=== PATIENT | male | born 1940 | race Caucasian/White ===

== ENCOUNTER 2018-11-20 11:15 | Emergency (ER) | payer OTHER, SELFPAY ==
[2018-11-20 11:25] VITALS: BP 138/57; PULSE 60; RESP 16; TEMP 36.8; O2SAT 95
--- NOTE | 2018-11-20 11:46 | W.ED.GENAD ---
Discharge Plan Disposition Patient Disposition: HOME Condition: Improving Discharge Details Chief Complaint: EyeProblem Clinical Impression: Acute conjunctivitis of right eye ED Provider: Tony Mauro Home Meds and New Rx's Prescriptions: New tobramycin 0.3 % drops 1 drp OP Q4H Qty: 5 RF: 0 Continued atenolol 100 mg Tablet 100 mg PO DAILY RF: 0 dorzolamide-timolol 22.3-6.8 mg/mL Drops 1 drp OPHTHALMIC (EYE) BID RF: 0 allopurinol 300 mg Tablet 300 mg PO DAILY RF: 0 carbidopa-levodopa 25-100 mg Tablet 1 tab PO TID RF: 0 finasteride 5 mg Tablet 5 mg PO DAILY RF: 0 cholecalciferol (vitamin D3) [Vitamin D3] 1,000 unit Capsule 1,000 unit PO DAILY RF: 0 Durezol 0.05 % Drops 1 drp OPHTHALMIC (EYE) BID RF: 0 Discharge Instructions Instructions: Conjunctivitis (ED) Additional Instructions: I discussed your case with Dr Doll at his office in [place]. Please begin tobramycin ophthalmic drops, apply to affected eye(s) 4 times daily. Apply 10 minutes after other eyedrop medications. We will arrange an outpatient follow-up for you with [facility]: The office is available at [phone]. Medical Decision Making 78yom [place] with 1-2 days of R conjunctival injection with purulent crusting discharge this morning. He is s/p retinal repair and has been taking difluprednate and Dorzolamide. Appears consistent with acute right conjunctivitis. Visual acuity preserved at 20/100. Globes soft/ballotable. Discussed with Dr Doll, the patient's electronic technologist in [place]. He recommends continuing his difluprednate on dorzolamide, adding tobramycin 4 times daily, and asked that the patient be seen in local follow-up. Followup with [facility] made. HPI General Mode of arrival: ambulatory. Date/Time Provider Initiated Documentation: 11/20/18 11:18. Limitations to Documentation: no limitations. Information obtained by: patient. History of Present Illness 78 year old M presents to the emergency department with the chief complaint of R eye conjunctivitis, described as moderate, Quality is described as burning and constant, and is localized to the eyes and right. Patient reports no radiation. Patient started experiencing this hour(s) and it has been constant. No relieving factors improve symptom(s), No exacerbating factors reported . Patient notes no other symptoms.. Patient did receive the following treatments prior to arrival, other (Dorzolamide, difluprednate) Related Data Home Medications Medication Instructions Recorded Confirmed Durezol 1 drp OPHTHALMIC (EYE) BID 11/20/18 11/20/18 allopurinol 300 mg PO DAILY 11/20/18 11/20/18 atenolol 100 mg PO DAILY 11/20/18 11/20/18 carbidopa-levodopa 1 tab PO TID 11/20/18 11/20/18 cholecalciferol (vitamin D3) 1,000 unit PO DAILY 11/20/18 11/20/18 [Vitamin D3] dorzolamide-timolol 1 drp OPHTHALMIC (EYE) BID 11/20/18 11/20/18 finasteride 5 mg PO DAILY 11/20/18 11/20/18 tobramycin 1 drp OP Q4H #5 ml 11/20/18 Previous Rx's Medication Instructions Recorded tobramycin 1 drp OP Q4H #5 ml 11/20/18 Allergies Allergy/AdvReac Type Severity Reaction Status Date / Time codeine Allergy Unverified 11/20/18 11:29 General Stated Complaint: EyeProblem BRENT: 4 Review of Systems Review of Systems no pain, no change to vision noticed, denies other illness. [facility] Social History Smoking/Tobacco Use Status: Former Tobacco Use Drug use: Never Do you feel safe at home: Yes Exam Narrative Exam Narrative: GEN: awake, alert, oriented 3. Pleasant, well groomed, interactive. HEAD: Normocephalic, atraumatic ENT: Mucous membranes moist, oropharynx unremarkable, External ear exam unremarkable EYES: PERRL, EOMI. Periorbital edema R. Bilateral injection, R crusting of eyelid. VA 20/100 OS/OU/OD NECK: Full ROM, no DEEPAK, no menigismus Neuro: Grossly normal neurologic exam, conversant, interactive. Psych: Speech fluent, thoughts congruent, affect normal Course Vital Signs Temperature 36.8 C 11/20/18 11:25 Pulse 60 11/20/18 11:25 Respiratory Rate 16 11/20/18 11:25 Blood Pressure 138/57 L 11/20/18 11:25 Pulse Oximetry 95 11/20/18 11:25 Temperature 36.8 C 11/20/18 11:25 Temperature Source Skin 11/20/18 11:25 Pulse 60 11/20/18 11:25 Respiratory Rate 16 11/20/18 11:25 Respiratory Effort Non-Labored 11/20/18 11:29 Blood Pressure 138/57 L 11/20/18 11:25 Blood Pressure Position Sitting 11/20/18 11:25 Pulse Oximetry 95 11/20/18 11:25 Oxygen Delivery Method Room Air 11/20/18 11:25 Oxygen Flow Rate 0 11/20/18 11:25 Pain Level 2 11/20/18 11:25
--- NOTE | 2018-11-20 11:56 | ED.GENADUL_ITS ---
Discharge Plan Disposition Patient Disposition: HOME Condition: Improving Discharge Details Chief Complaint: EyeProblem Clinical Impression: Acute conjunctivitis of right eye ED Provider: Tony Mauro Home Meds and New Rx's Prescriptions: New tobramycin 0.3 % drops 1 drp OP Q4H Qty: 5 RF: 0 Continued atenolol 100 mg Tablet 100 mg PO DAILY RF: 0 dorzolamide-timolol 22.3-6.8 mg/mL Drops 1 drp OPHTHALMIC (EYE) BID RF: 0 allopurinol 300 mg Tablet 300 mg PO DAILY RF: 0 carbidopa-levodopa 25-100 mg Tablet 1 tab PO TID RF: 0 finasteride 5 mg Tablet 5 mg PO DAILY RF: 0 cholecalciferol (vitamin D3) [Vitamin D3] 1,000 unit Capsule 1,000 unit PO DAILY RF: 0 Durezol 0.05 % Drops 1 drp OPHTHALMIC (EYE) BID RF: 0 Discharge Instructions Instructions: Conjunctivitis (ED) Additional Instructions: I discussed your case with Dr Doll at his office in [place]. Please begin tobramycin ophthalmic drops, apply to affected eye(s) 4 times daily. Apply 10 minutes after other eyedrop medications. We will arrange an outpatient follow-up for you with [facility]: The office is available at [phone]. Medical Decision Making 78yom presents from his home in [facility] with 1-2 days of R conjunctival injection with purulent crusting discharge this morning. He is s/p retinal repair and has been taking difluprednate and Dorzolamide. Appears consistent with acute right conjunctivitis. Visual acuity preserved at 20/100. Globes soft/ballotable. Discussed with Dr Doll, the patient's wood die maker in [place]. He recommends continuing his difluprednate on dorzolamide, adding tobramycin 4 times daily, and asked that the patient be seen in local follow-up. Followup with [facility] made. HPI General Mode of arrival: ambulatory . Date/Time Provider Initiated Documentation: 11/20/18 11:18 . Limitations to Documentation: no limitations . Information obtained by: patient . History of Present Illness 78 year old M presents to the emergency department with the chief complaint of R eye conjuncti vitis, described as moderate, Quality is described as burning and constant, and is localized to the eyes and right. Patient reports no radiation. Patient started experiencing this hour(s) and it has been constant. No relieving factors improve symptom(s), No exacerbating factors reported . Patient notes no other symptoms.. Patient did receive the following treatments prior to arrival, other (Dorzolamide, difluprednate) Related Data Home Medications Medication Instructions Recorded Confirmed Durezol 1 drp OPHTHALMIC (EYE) BID 11/20/18 11/20/18 allopurinol 300 mg PO DAILY 11/20/18 11/20/18 atenolol 100 mg PO DAILY 11/20/18 11/20/18 carbidopa-levodopa 1 tab PO TID 11/20/18 11/20/18 cholecalciferol (vitamin D3) 1,000 unit PO DAILY 11/20/18 11/20/18 [Vitamin D3] dorzolamide-timolol 1 drp OPHTHALMIC (EYE) BID 11/20/18 11/20/18 finasteride 5 mg PO DAILY 11/20/18 11/20/18 tobramycin 1 drp OP Q4H #5 ml 11/20/18 Previous Rx's Medication Instructions Recorded tobramycin 1 drp OP Q4H #5 ml 11/20/18 Allergies Allergy/AdvReac Type Severity Reaction Status Date / Time codeine Allergy Unverified 11/20/18 11:29 General Stated Complaint: EyeProblem BRENT: 4 Review of Systems Review of Systems no pain, no change to vision noticed, denies other illness. [facility] Social History Smoking/Tobacco Use Status: Former Tobacco Use Drug use: Never Do you feel safe at home: Yes Exam Narrative Exam Narrative: GEN: awake, alert, oriented 3. Pleasant, well groomed, interactive. HEAD: Normocephalic, atraumatic ENT: Mucous membranes moist, oropharynx unremarkable, External ear exam unremarkable EYES: PERRL, EOMI. Periorbital edema R. Bilateral injection, R crusting of eyelid. VA 20/100 OS/OU/OD NECK: Full ROM, no DEEPAK, no menigismus Neuro: Grossly normal neurologic exam, conversant, interactive. Psych: Speech fluent, thoughts congruent, affect normal Course Vital Signs Temperature 36.8 C 11/20/18 11:25 Pulse 60 07/03/19 11:25 Respiratory Rate 16 11/20/18 11:25 Blood Pressure 138/57 L 11/20/18 11:25 Pulse Oximetry 95 11/20/18 11:25 Temperature 36.8 C 11/20/18 11:25 Temperature Source Skin 11/20/18 11:25 Pulse 60 11/20/18 11:25 Respiratory Rate 16 11/20/18 11:25 Respiratory Effort Non-Labored 11/20/18 11:29 Blood Pressure 138/57 L 11/20/18 11:25 Blood Pressure Position Sitting 11/20/18 11:25 Pulse Oximetry 95 11/20/18 11:25 Oxygen Delivery Method Room Air 11/20/18 11:25 Oxygen Flow Rate 0 11/20/18 11:25 Pain Level 2 11/20/18 11:25
--- NOTE | 2018-11-20 12:03 | NUR.NOTE ---
Nursing Note: Appt. made for pt today @ [id number]; to work him in with [facility]. Genoveva Castellanos.
== END 2018-11-20 12:09 | disposition home or self-care (01) ==
PROVIDERS: Emergency Provider Emergency Medicine
DX: H10.31 Unspecified acute conjunctivitis, right eye (principal)
CPT/HCPCS: 99283

== ENCOUNTER 2018-11-24 11:14 | Emergency (ER) | payer OTHER, SELFPAY ==
[2018-11-24 11:25] VITALS: BP 135/106; PULSE 56; RESP 16; TEMP 36.4; O2SAT 97
--- NOTE | 2018-11-24 11:44 | W.ED.GENAD ---
Discharge Plan Disposition Patient Disposition: HOME Condition: Stable Discharge Details Chief Complaint: RespSymp Clinical Impression: Cough, Pneumonia Primary Care Provider: Valentina,Local ED Provider: Yolis Chaudhary Home Meds and New Rx's Prescriptions: New benzonatate [Tessalon Perles] 100 mg capsule 100 mg PO TID PRN (Reason: cough) Qty: 14 RF: 0 amoxicillin-pot clavulanate [Augmentin] 875-125 mg tablet 1 tab PO BID 7 Days Qty: 14 RF: 0 prednisone 20 mg tablet See Rx Instructions .ROUTE .COMPLEX Qty: 12 RF: 0 No Action atenolol 100 mg Tablet 100 mg PO DAILY RF: 0 dorzolamide-timolol 22.3-6.8 mg/mL Drops 1 drp OPHTHALMIC (EYE) BID RF: 0 allopurinol 300 mg Tablet 300 mg PO DAILY RF: 0 carbidopa-levodopa 25-100 mg Tablet 1 tab PO TID RF: 0 finasteride 5 mg Tablet 5 mg PO DAILY RF: 0 cholecalciferol (vitamin D3) [Vitamin D3] 1,000 unit Capsule 1,000 unit PO DAILY RF: 0 Durezol 0.05 % Drops 1 drp OPHTHALMIC (EYE) BID RF: 0 tobramycin 0.3 % drops 1 drp OP Q4H Qty: 5 RF: 0 Discharge Instructions Instructions: Pneumonia (ED), Acute Cough (ED) Additional Instructions: Use the albuterol inhaler as needed and directed for any coughing or shortness of breath. Take the cough medicine as needed and directed. Take the antibiotic's until finished. If you have no relief or worsening of symptoms, you may start the steroids. You will receive a call from care management regarding a follow-up appointment with her primary care doctor in 1 to 2 weeks Return immediately to the emergency department if you develop any worsening or new concerning symptoms. Discharge Data Discharge Date/Time-TO BE ENTERED AT DEPARTURE: 11/24/18 14:35 Discharge Physician: Yolis Chaudhary Medical Decision Making 78-year-old male with history of hypertension, Parkinson's and gout who presents with cough with brown sputum and shortness of breath for the past 8 days. He states his main complaint is coughing at night. Denies any shortness of breath at present. Denies any fever or chest pain. Only complains of shortness of breath and anterior rib pain with his coughing fits. Patient appears nontoxic. Afebrile. Normal oxygen saturation respiratory rate. Normal ENT exam. He was seen here last week for bilateral bacterial conjunctivitis. There is a superficial abrasion noted below right eye which may be from warm compresses but conjunctivitis seems to be resolving. Lungs clear to auscultation. Discussed that symptoms can be due to allergies, bronchitis, sinus congestion with nasal drip, laryngitis, pneumonia. We will give an albuterol neb treatment, ibuprofen, and obtain a chest x-ray. CXR notes atelectasis vs pneumonia. Pt feels slightly better after neb. Will give a script for tessalon perles, steroids and antibiotics for bronchitis/possible pneumonia. Albuterol inhaler given. Pt placed on care management list for a pcp follow up appointment. Pt is here til January and does not have a pcp here. Instructed to return if worse. Medical Records Medical records reviewed: Yes I reviewed the patient's medical records. Imaging Data Radiologic Study: Radiologist's impression: XR Chest, 2 Views EXAM DATE/TIME: 11/24/2018 12:53 PM CLINICAL HISTORY: 78 years old, male; Cough and fever TECHNIQUE: Imaging protocol: XR of the chest, 2 views. COMPARISON: No relevant prior studies available. FINDINGS: Lungs: There are some coarse, mild bibasilar lung markings. Pleural space: Unremarkable. No pleural effusion. No pneumothorax. Heart/Mediastinum: Heart size upper limits of normal. Bones/joints: Unremarkable. IMPRESSION: Probable early bibasilar consolidation versus atelectasis. HPI General Mode of arrival: ambulatory. Date/Time Provider Initiated Documentation: 11/24/18 11:33. Limitations to Documentation: no limitations. Information obtained by: patient. HPI Narrative: Patient is an 78-year-old male with a history of hypertension, Parkinson's and gout who presents with cough with brown sputum and intermittent shortness of breath for the past week. He also admits to bilateral ear fullness. He states he wakes up in the morning and feels better, and states that his symptoms progress throughout the day and his cough is worse at night with coughing fits and chest pain that occurs only with coughing. He states he only has shortness of breath when he has his coughing fits at night. He denies any fever, sore throat. He states he has not been taking any medications for his symptoms. Patient was seen here last week for bilateral eye redness and yellow discharge and was diagnosed with conjunctivitis and sent home with tobramycin eyedrops he states his symptoms have overall improved. Related Data Home Medications Medication Instructions Recorded Confirmed Durezol 1 drp OPHTHALMIC (EYE) BID 11/20/18 11/24/18 allopurinol 300 mg PO DAILY 11/20/18 11/24/18 atenolol 100 mg PO DAILY 11/20/18 11/24/18 carbidopa-levodopa 1 tab PO TID 11/20/18 11/24/18 cholecalciferol (vitamin D3) 1,000 unit PO DAILY 11/20/18 11/24/18 [Vitamin D3] dorzolamide-timolol 1 drp OPHTHALMIC (EYE) BID 11/20/18 11/24/18 finasteride 5 mg PO DAILY 11/20/18 11/24/18 tobramycin 1 drp OP Q4H #5 ml 11/20/18 11/24/18 amoxicillin-pot clavulanate 1 tab PO BID 7 Days #14 tab 11/24/18 [Augmentin] benzonatate [Tessalon Perles] 100 mg PO TID PRN #14 cap 11/24/18 prednisone See Rx Instructions .ROUTE 11/24/18 .COMPLEX #12 tab Previous Rx's Medication Instructions Recorded tobramycin 1 drp OP Q4H #5 ml 11/20/18 amoxicillin-pot clavulanate 1 tab PO BID 7 Days #14 tab 11/24/18 [Augmentin] benzonatate [Tessalon Perles] 100 mg PO TID PRN #14 cap 11/24/18 prednisone See Rx Instructions .ROUTE 11/24/18 .COMPLEX #12 tab Allergies Allergy/AdvReac Type Severity Reaction Status Date / Time codeine Allergy Unverified 11/24/18 11:28 General Stated Complaint: RespSymp BRENT: 3 Review of Systems Review of Systems All systems reviewed & are unremarkable except as noted in HPI and below Constitutional Reports as per HPI, Denies chills and Denies fever(s) Eyes Denies blurry vision ENT Denies dizziness, Denies sore throat and Denies throat swelling Cardiovascular Denies chest pain and Reports dyspnea Respiratory Reports cough and Reports dyspnea Gastrointestinal Denies abdominal pain, Denies diarrhea and Denies vomiting Genitourinary Denies hematuria and Denies dysuria Musculoskeletal Denies back pain and Denies numbness Integumentary/Breasts Denies lesions and Denies rash Neurologic Denies dizziness, Denies focal weakness and Denies numbness Allergic/Immunologic Denies throat swelling [facility] Medical History Gout (Chronic) HTN (hypertension) (Chronic) Parkinsons disease (Chronic) Surgical History History of repair of retinal defect by laser photocoagulation (Acute) Social History Smoking/Tobacco Use Status: Former Tobacco Use Alcohol Intake: current Alcohol Intake frequency: holidays/special occasions only Drug use: Never Substance use type: does not use Do you feel safe at home: Yes Do you feel safe in your relationship?: Yes Exam Const General: cooperative and healthy appearing Orientation: alert and awake HENMT Head: normal to inspection Ears: hearing grossly normal bilaterally, external ears normal and TM's normal bilaterally General nose exam: external nose normal Face and sinus: normal facial exam Mouth: oral mucosae normal Teeth and gingiva: dentition normal Throat: posterior oropharynx normal Eyes General: appearance normal, both eyes and all related structures Eyelids: eyelids normal Pupils: PERRL EOM: EOM intact bilaterally Other: No conjunctival injection, yellow discharge noted to the eyes bilaterally Eyes/upper lids images: 1. 2.5cm red crusting c/w abrasion vs burn/irritation w/ minimal surrounding erythema. No yellow discharge. No abscess. Neck Neck: normal visual inspection Lymphatic: no lymphadenopathy noted Chest Chest: normal inspection of the chest Resp Effort & Inspection: normal respiratory effort and able to speak in complete sentences Auscultation: clear to auscultation bilaterally Cardio Rate: regular rate Rhythm: regular rhythm GI Inspection: normal to inspection Palpation: soft, not firm, no guarding, no hepatosplenomegaly, no masses and nontender Auscultation: normal bowel sounds Skin General skin exam: no rashes or lesions noted Neuro General: alert and awake Cognition: normal cognition Speech: speech normal Gait: normal gait Motor: muscle tone normal throughout Sensory Exam: no sensory deficits noted Extrem General: normal to inspection, full ROM, normal capillary refill and no edema Psych Appearance: grossly normal Mental Status: mental status grossly normal Speech and Movement: speech and movement normal Affect: normal affect Thought Process: normal Course Vital Signs Temperature 97.5 F L 11/24/18 11:25 Pulse 56 L 11/24/18 11:25 Respiratory Rate 16 11/24/18 11:25 Blood Pressure 135/106 H 11/24/18 11:25 Pulse Oximetry 97 11/24/18 11:25 Temperature 97.5 F L 11/24/18 11:25 Temperature Source Temporal Artery Scan 11/24/18 11:25 Pulse 56 L 11/24/18 11:25 Respiratory Rate 16 11/24/18 11:25 Respiratory Effort Non-Labored 11/24/18 11:27 Blood Pressure 135/106 H 11/24/18 11:25 Blood Pressure Position Sitting 11/24/18 11:25 Pulse Oximetry 97 11/24/18 11:25 Oxygen Delivery Method Room Air 11/24/18 11:25 Oxygen Flow Rate 0 11/24/18 11:25 Pain Level 0 11/24/18 11:25
--- NOTE | 2018-11-24 12:16 | DI.RAD_ITS ---
SYMPTOM/DIAGNOSIS: COUGH, R/O PNEUMONIA PA AND LATERAL CHEST: 11/24 No previous chest films available for comparison. The heart is not enlarged. There are somewhat prominent bilateral intrapulmonary markings which may be chronic. The possibility of mild acute superimposed bibasilar atelectasis and/or patchy consolidation not excluded. No pleural effusion seen. CONCLUSION: Bibasilar intrapulmonary radiodensities, acute vs chronic. Appropriate follow up films requested.
[2018-11-24 13:12] VITALS: PULSE 56; RESP 16; RESP 8
[2018-11-24] MEDS: Albuterol/Ipratropium 3 ML UPD VIAL UPD (13:12)
[2018-11-24] MEDS: Ibuprofen 600 MG TAB PO (13:12)
[2018-11-24] MEDS: Erythromycin Ophth Oint 3.5 GM TUBE OU (13:12)
[2018-11-24] MEDS: Albuterol HFA 8 GM 60 PUFF INH IH (13:13)
[2018-11-24] MEDS: Inhaler, Assist Device 1 EACH MC (13:13)
--- NOTE | 2018-11-24 13:22 | DI.VRAD_ITS ---
EXAM: XR Chest, 2 Views EXAM DATE/TIME: 11/24/2018 12:53 PM CLINICAL HISTORY: 78 years old, male; Cough and fever TECHNIQUE: Imaging protocol: XR of the chest, 2 views. COMPARISON: No relevant prior studies available. FINDINGS: Lungs: There are some coarse, mild bibasilar lung markings. Pleural space: Unremarkable. No pleural effusion. No pneumothorax. Heart/Mediastinum: Heart size upper limits of normal. Bones/joints: Unremarkable. IMPRESSION: Probable early bibasilar consolidation versus atelectasis. COMMENT: Preliminary interpretation is based on receipt of 2 image(s). A final report will be issued subsequently. Dictated and Authenticated by: Polina Mosqueda MD. Ordering:MARLEE Lagos MD
[2018-11-24] MEDS: guaiFENesin/CODEINE PHOSPHATE 10 ML CUP 20 ML PO (14:01)
[2018-11-24 15:03] VITALS: BP 136/96; PULSE 56; RESP 16; O2SAT 98
== END 2018-11-24 14:35 | disposition home or self-care (01) ==
PROVIDERS: Emergency Provider Physician Assistant
DX: J18.9 Pneumonia, unspecified organism (principal); G20 Parkinson's disease; I10 Essential (primary) hypertension
CPT/HCPCS: 94640; 99283; 71046; J7620

== ENCOUNTER 2019-11-07 15:40 | Outpatient (REF) | payer OTHER, SELFPAY ==
[2019-11-08 18:27] LABS: COVID-19 RT-PCR UVMMC Result Negative (Negative)
== END 2019-11-07 16:00 ==
LOC: NCHCN 15:40
PROVIDERS: PCP Nurse Practitioner Family; Visit Provider Physician Assistant
DX: J06.9 Acute upper respiratory infection, unspecified (principal)
CPT/HCPCS: U0003

== ENCOUNTER 2020-01-29 18:56 | Outpatient (CLI) | payer OTHER, SELFPAY ==
--- NOTE | 2020-01-29 | DI.RAD_ITS ---
EXAM: XR KNEE RT 3V AP,LAT,FREDERICK INDICATION: RT KNEE PAIN, [id number]. COMPARISON: No exams were available for comparison TECHNIQUE: 2D digital imaging was performed. FINDINGS: There is moderate narrowing of the lateral femoral tibial joint space. There is periarticular spurri ng greatest at the lateral tibial plateau. Spurring is also noted at the articular aspect of the pat keith and quadriceps insertion. No joint effusion is seen. 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 DATA REPOSITORY: RADIATION DOSE DELIVERED:
== END 2020-01-29 19:16 ==
PROVIDERS: PCP Nurse Practitioner Family; Visit Provider Family Medicine
DX: M17.11 Unilateral primary osteoarthritis, right knee (principal); M25.561 Pain in right knee
CPT/HCPCS: 73562

== ENCOUNTER 2020-12-23 11:39 | Emergency (ER) | payer OTHER, SELFPAY ==
--- NOTE | 2020-12-23 11:51 | ED.GENADUL_ITS ---
"Discharge Plan Disposition Patient Disposition: HOME Condition: Stable Discharge Details Clinical Impression: Chronic knee pain Primary Care Provider: Rula Danielle ED Provider: Eleazar Richardson Home Meds and New Rx's Prescriptions: Continued amlodipine 5 mg Tablet 5 mg PO DAILY RF: 0 tamsulosin 0.4 mg Capsule 0.4 mg PO QHS RF: 0 clotrimazole-betamethasone 1-0.05 % Cream 1 applic TOPICAL BID RF: 0 escitalopram oxalate 10 mg Tablet 10 mg PO DAILY RF: 0 rosuvastatin 5 mg Tablet 5 mg PO DAILY RF: 0 dorzolamide-timolol 22.3-6.8 mg/mL Drops 1 drp OPHTHALMIC (EYE) BID RF: 0 allopurinol 300 mg Tablet 300 mg PO DAILY RF: 0 carbidopa-levodopa 25-100 mg Tablet 1 tab PO TID RF: 0 cholecalciferol (vitamin D3) [Vitamin D3] 1,000 unit Capsule 1,000 unit PO DAILY RF: 0 Durezol 0.05 % Drops 1 drp OPHTHALMIC (EYE) BID RF: 0 Discharge Instructions Instructions: Knee Pain (ED) Additional Instructions: Your laboratory values and ultrasound are unremarkable but your x-ray reveals chronic degenerative knee changes. Rest, elevate, cool compresses as tolerated. Continue using your walker and/or cane as needed for ambulation. Please watch for new or worsening symptoms and return to the ER for any concerns. I have placed you on the orthopedic list, please contact their office tomorrow to discuss outpatient reevaluation. Referrals: Arnoldo Villa MD [ [facility] STAFF PHYSICIAN] - Discharge Data Discharge Date/Time-TO BE ENTERED AT DEPARTURE: 12/23/20 15:04 Medical Decision Making 80-year-old gentleman presents with acute on chronic right knee pain. Patient appears well, nontoxic, no evidence of septic joint, able to ambulate slowly but steadily using his cane. I see no indication for emergent aspiration. Patient is already had his knee aspirated multiple times over the year and continues to have swelling. Is going through physical therapy but does not have a local orthopedic team. Will obtain routine laboratory values, x-ray of the knee and obtain ultrasound although extremely low suspicion of DVT. Laboratory values reveal a normal white blood cell count, electrolytes unremarkable, GFR greater than 60. X-ray reveals severe given the changes, nothing acute. Negative ultrasound Discussed work-up with patient and significant other. They are relieved. Patient already has a cane and a walker. Offered Cal wrap, patient declined. Patient is agreeable to orthopedic referral, patient placed on the orthopedic list to help expedite outpatient care. Patient encouraged to return to the ER for new or worsening symptoms. Standard discharge and return precautions This documentation was generated using [employer] dictation system, please disregard any oddities of phrase or misspellings. Medical Records Medical records reviewed: Yes I reviewed the patient's medical records. Imaging Data Radiologic Study: Attestation: I personally reviewed and interpreted this imaging study as follows: Imaging: Ultrasound Radiologist's impression: EXAM US LOWER EXTREMITY VENOUS RT CLINICAL HISTORY pain/swelling TECHNIQUE Grayscale, color, and doppler imaging of the deep venous system of the [right] lower extremity was performed. COMPARISON [No exams were available for comparison] FINDINGS [There is no evidence of intraluminal thrombus and there is normal compression and augmentation demonstrated within the common femoral vein, femoral vein, and popliteal vein.] [In the ipsilateral calf the interrogated veins also exhibit normal compression/ augmentation properties.] [The ipsilateral saphenofemoral junction is patent.] [] IMPRESSION 1. No evidence of DVT in the [right] lower extremity Radiologic Study #2: Attestation: I personally reviewed and interpreted this imaging study as follows: Imaging: X-Ray Radiologist's impression: EXAM XR KNEE RT 4V+ CLINICAL HISTORY [ fall/chronic pain. ] [] TECHNIQUE 2D digital imaging was performed. COMPARISON [CR XR KNEE RT 3V AP,LAT,FREDERICK from 01/29/2020] [] FINDINGS [There is no evidence of fracture or obvious joint effusion. However, there are significant degenerative changes. Moderate degenerative changes in the lateral compartment. Moderate severe degenerative changes in the patellofemoral compartment, most prominent in the lateral aspect of the patellofemoral compartment. Milder degenerative changes in the medial compartment. No osseous lesions.] [] IMPRESSION [Osteoarthritic degenerative changes as described above. No obvious fracture. No obvious joint effusion Lab Data Lab results reviewed: Yes I reviewed the patient's lab results. Labs: Laboratory Tests Range/Units 12/23/20 12/23/20 13:08 13:08 WBC (4.4-10.8) 10^3/uL 5.02 RBC (4.36-5.78) 10^6/uL 3.97 L Hgb (13.5-17.5) g/dL 12.8 L Hct (40.0-50.0) % 36.7 L MCV (80-95) fL 92.4 MCH (27.0-33.0) pg 32.2 MCHC (32.0-36.0) % 34.9 RDW (11.8-14.1) % 13.6 Plt Count (130-400) 10^3/uL 197 MPV (8.0-11.0) fL 9.6 Immature Gran % 0.2 Neutrophils % 68.7 Lymphocytes % 17.5 Monocytes % 10.2 Eosinophils % 2.2 Basophils % 1.2 Nucleated RBC % % 0 Absolute Neutrophils (1.2-6.7) 10^3/uL 3.45 Absolute Lymphocytes (1.2-3.4) 10^3/uL 0.88 L Absolute Monocytes (0.1-0.8) 10^3/uL 0.51 Absolute Eosinophils (0.0-0.7) 10^3/uL 0.11 Absolute Basophils (0.0-0.2) 10^3/uL 0.06 Sodium (136-145) mmol/L 140 Potassium (3.5-5.1) mmol/L 3.7 Chloride (98-107) mmol/L 105 Carbon Dioxide (21.0-32.0) mmol/L 29.0 Anion Gap (3-11) mmol/L 6.0 BUN (7-18) mg/dL 17 Creatinine (0.70-1.30) mg/dL 0.8 Estimated GFR/1.73 m2 (mL/min/1.73m2) >= 60.00 Glucose (74-106) mg/dL 102 Calcium (8.5-10.1) mg/dL 8.8 Total Bilirubin (0.2-1.0) mg/dL 0.7 AST (15-37) U/L 17 ALT (16-63) U/L 8 L Alkaline Phosphatase (46-116) U/L 86 Total Protein (6.4-8.2) g/dL 6.5 Albumin (3.4-5.0) g/dL 3.9 HPI General Mode of arrival: wheelchair . Date/Time Provider Initiated Documentation: 12/23/20 11:51 . Limitations to Documentation: no limitations . Information obtained by: patient . HPI Narrative: This is an 80-year-old gentleman, past medical history of hypertension, gout, Parkinson's, BPH, presented to the ER for acute on chronic right knee pain. Patient states that he lives in [place] two thirds of the year, here third of the year. Approximately 1 year ago he fell injuring his right knee and has never been the same ever since. He does go to physical therapy, reports that he has had the knee drained 2 or 3 times over the past year. Now over the past couple of months he reports increased pain, swelling across the anterior aspect. He reports tightness, stiffness but he is able to ambulate using a walker or cane. Denies fever, other joint pain, redness, rash. He is also followed by a neurologist at [facility], scheduled for a back MRI in 8 days. He contacted his physical therapy team today and they recommend going to the ER for worsening discomfort Related Data Home Medications Medication Instructions Recorded Confirmed Durezol 1 drp OPHTHALMIC (EYE) BID 11/20/18 12/23/20 allopurinol 300 mg PO DAILY 11/20/18 12/23/20 carbidopa-levodopa 1 tab PO TID 11/20/18 12/23/20 cholecalciferol (vitamin D3) 1,000 unit PO DAILY 11/20/18 12/23/20 [Vitamin D3] dorzolamide-timolol 1 drp OPHTHALMIC (EYE) BID 11/20/18 12/23/20 amlodipine 5 mg PO DAILY 12/23/20 12/23/20 clotrimazole-betamethasone 1 applic TOPICAL BID 12/23/20 12/23/20 escitalopram oxalate 10 mg PO DAILY 12/23/20 12/23/20 rosuvastatin 5 mg PO DAILY 12/23/20 12/23/20 tamsulosin 0.4 mg PO QHS 12/23/20 12/23/20 Allergies Allergy/AdvReac Type Severity Reaction Status Date / Time codeine Allergy Unverified 12/23/20 12:16 General BRENT: 3 Review of Systems Constitutional Constitutional: Denies fever(s) and Denies weakness Cardiovascular Cardiovascular: Denies chest pain and Denies dyspnea Respiratory Respiratory: Denies dyspnea Musculoskeletal Musculoskeletal: Denies deformity, Reports arthralgias, Denies numbness, Reports stiffness and Denies tingling Integumentary/Breasts Skin/Breast: Denies erythema Neurologic Neurologic: Denies numbness, Denies tingling and Denies weakness [facility] Medical History Gout HTN (hypertension) Parkinsons disease Surgical History History of repair of retinal defect by laser photocoagulation Social History Smoking/Tobacco Use Status: Former Tobacco Use Smoking risk assessment performed?: Yes Alcohol Intake: current Alcohol Intake frequency: holidays/special occasions only Drug use: Never Substance use type: does not use Do you feel safe at home: Yes Do you feel safe in your relationship?: Yes Exam Const General: cooperative, healthy appearing, comfortable and no acute distress Orientation: alert and awake HENMT Head: normal to inspection, normocephalic and atraumatic Eyes General: appearance normal, both eyes and all related structures Conjunctivae: conjunctivae normal Neck Neck: normal visual inspection, full ROM, trachea midline and supple Resp Effort & Inspection: normal respiratory effort and able to speak in complete sentences Cardio Rate: regular rate Rhythm: regular rhythm Back/Spine/Pelvis Back: no CVA tenderness and back tenderness (Diffuse mild lumbar discomfort) Skin General skin exam: no rashes or lesions noted Neuro General: patient alert, patient awake, moves all extremities and no focal motor deficits Cognition: normal cognition Speech: speech normal Gait: antalgic (Minimal) and gait assisted Method: other (Cane) Sensory Exam: no sensory deficits noted Extrem General: full ROM and capillary refill normal Other: Right knee, without erythema or warmth. There is diffuse mild anterior swelling. Full range of motion. No laxity. No discomfort with anterior draw, varus or valgus stress. Normal capillary refill. Normal dorsalis pedal pulse. Calf without swelling, warmth, erythema, discomfort. Negative Homans' sign Psych Appearance: grossly normal Mental Status: mental status grossly normal"
[2020-12-23 12:14] VITALS: BP 132/61; PULSE 61; RESP 20; TEMP 36.3; O2SAT 96
--- NOTE | 2020-12-23 12:45 | DI.US_ITS ---
Exam(s) US LOWER EXTREMITY VENOUS RT EXAM: US LOWER EXTREMITY VENOUS RT CLINICAL HISTORY: pain/swelling TECHNIQUE: Grayscale, color, and doppler imaging of the deep venous system of the right lower extrem ity was performed. COMPARISON: No exams were available for comparison FINDINGS: There is no evidence of intraluminal thrombus and there is normal compression and augmentation demons trated within the common femoral vein, femoral vein, and popliteal vein. In the ipsilateral calf the interrogated veins also exhibit normal compression/ augmentation properti es. The ipsilateral saphenofemoral junction is patent. IMPRESSION: 1. No evidence of DVT in the right lower extremity. 2. DATA REPOSITORY:
--- NOTE | 2020-12-23 12:45 | DI.RAD_ITS ---
Exam(s) XR KNEE RT 4V+ EXAM: XR KNEE RT 4V+ CLINICAL HISTORY: fall/chronic pain. TECHNIQUE: 2D digital imaging was performed. COMPARISON: CR XR KNEE RT 3V AP,LAT,FREDERICK from 01/29/2020 FINDINGS: There is no evidence of fracture or obvious joint effusion. However, there are significant degenerat caprice changes. Moderate degenerative changes in the lateral compartment. Moderate severe degenerative changes in the patellofemoral compartment, most prominent in the lateral aspect of the patellofemora l compartment. Milder degenerative changes in the medial compartment. No osseous lesions. IMPRESSION: Osteoarthritic degenerative changes as described above. No obvious fracture. No obvious joint effus ion. DATA REPOSITORY: RADIATION DOSE DELIVERED:
[2020-12-23 13:18] LABS: Abs Immature Grans 0.01 10^3/uL (0.0-0.06); Absolute Basophil Count 0.06 10^3/uL (0.0-0.2); Absolute Eosinophil Count 0.11 10^3/uL (0.0-0.7); Absolute Lymphocyte Count 0.88 10^3/uL (1.2-3.4); Absolute Monocyte Count 0.51 10^3/uL (0.1-0.8); Absolute Neutrophil Count 3.45 10^3/uL (1.2-6.7); Basophils % 1.2; Eosinophils % 2.2; HCT 36.7 % (40.0-50.0); HGB 12.8 g/dL (13.5-17.5); Immature Grans % 0.2; Lymphocytes % 17.5; MCH 32.2 pg (27.0-33.0); MCHC 34.9 % (32.0-36.0); MCV 92.4 fL (80-95); MPV 9.6 fL (8.0-11.0); Monocytes % 10.2; Neutrophils % 68.7; Nucleated RBC 0 %; Platelet Count 197 10^3/uL (130-400); RBC 3.97 10^6/uL (4.36-5.78); RDW 13.6 % (11.8-14.1); RDW-SD 46.5 fL; WBC 5.02 10^3/uL (4.4-10.8)
[2020-12-23 13:27] LABS: ALT 8 U/L (16-63); AST 17 U/L (15-37); Albumin 3.9 g/dL (3.4-5.0); Alkaline Phosphatase 86 U/L (46-116); BUN 17 mg/dL (7-18); Bilirubin, Total 0.7 mg/dL (0.2-1.0); CREATININE 0.8 mg/dL (0.70-1.30); Calcium 8.8 mg/dL (8.5-10.1); Chloride 105 mmol/L (98-107); Glucose 102 mg/dL (74-106); Potassium 3.7 mmol/L (3.5-5.1); Sodium 140 mmol/L (136-145); Total Protein 6.5 g/dL (6.4-8.2)
== END 2020-12-23 15:04 | disposition home or self-care (01) ==
PROVIDERS: Emergency Provider Physician Assistant; PCP Nurse Practitioner Family
DX: M25.561 Pain in right knee (principal); G89.29 Other chronic pain
CPT/HCPCS: 80053; 99284; 73564; 85025; 93971; 99283

== ENCOUNTER 2020-12-31 03:26 | Outpatient (CLI) | payer OTHER, SELFPAY ==
--- NOTE | 2020-12-31 | DI.MRI_ITS ---
Exam(s) MR LUMBAR SPINE WO EXAM: MR LUMBAR SPINE WO CLINICAL HISTORY: SPINAL STENOSIS,LUMBAR RADICULOPATHY,BACK PAIN,SEVERE IN RT LEG,? WORSENING. TECHNIQUE: Multiplanar multisequence MRI of the Lumbar spine was performed. COMPARISON: There are no lumbar spine plain films available time this MRI interpretation FINDINGS: Five lumbar vertebrae are presumed. Conus medullaris is at normal level. There is no evidence of conus mass nor subjacent clumping of in trathecal nerve roots to suggest arachnoiditis. The distal thecal sac appears unremarkable.There is no evidence of Tarlov intrasacral cysts nor other significant findings within the sacral canal Bones:There are no fractures. However, in the posterior aspect of L5 vertebral body there is a area of signal abnormality consistent with non expansile bone lesion measuring approximately 1.5 by 1.3 cm . This does not have typical signal characteristics of a benign hemangioma, it being hypo intense on T1 and exhibiting increased signal on the STIR sequence. With respect to the individual levels... T12-L1: Unremarkable L1-2: Mild uniform decreased disc height. Mild 2 millimeter retrolisthesis of L1 relative to L2. No focal disc herniation. Central canal dimensions are within normal limits. No foraminal stenosis. Mild facet degenerative changes. L2-3: Relatively preserved disc height and signal. Mild (1 millimeter) retrolisthesis of L2 upon L3. Mild annular bulging evident but without a distinct focal disc herniation. Central canal dimension s are lower normal. There is no significant foraminal stenosis at this level. Mild facet degenerati ve changes. L3-4: Anterior osseous lipping. Mild disc space narrowing is noted posteriorly at this level. There is broad symmetrical annular bulging which flattens the anterior aspect thecal sac. Mild central ca nal stenosis. No dominant focal disc herniation. No significant foraminal stenosis. Mild degenerat caprice facet joint changes. L4-5: Preserved disc height and signal. Symmetrical annular bulging central subligamentous. Mild-mo derate central canal stenosis, this related to short AP dimensions the pedicles, as well as the annul ar bulging . no foraminal stenosis. Minimal facet arthropathy at this level. L5-S1: Moderate disc space narrowing. Broad annular bulging. Mild-moderate central canal stenosis. There is mild bilateral foraminal stenosis with the exiting nerve roots impinged between the overlyi ng L5 pedicles and subjacent bulging annulus. Mild facet arthropathy. Soft tissues: Right renal cysts are noted. Paraspinal musculature unremarkable. IMPRESSION: 1. Multilevel mild disc findings as described above. No dominant focal disc herniation. There is an element of central canal stenosis evident at L3-4, L4-5, and L5-S1 levels, as described above. With the exception of L5-S1 level there is no significant foraminal stenosis. 2. At L5-S1 level there is an element of mild bilateral foraminal stenosis which is causing mild impi ngement of the exiting nerve roots at this level. This is related to moderate disc height loss bilat erally at this level as well as annular bulging, with the exiting nerve roots impinged between the ov erlying L5 pedicles and subjacent bulging annulus at this level 3. Nonexpansile focus of signal abnormality in the posterior aspect of L5 vertebral body, suspicious for possible concerning bone lesion as this does not exhibit typical signal characteristics of a wiley gn hemangioma nor of the typical bone cyst. Recommend whole body nuclear bone scan to determine if t his is an active lesion and also to determine (with the same test) if there are other osseous lesions in the skeleton. DATA REPOSITORY:
== END 2020-12-31 03:46 ==
PROVIDERS: PCP Nurse Practitioner Family; Visit Provider Psychiatry & Neurology Neurocritical Care
DX: M47.26 Other spondylosis with radiculopathy, lumbar region (principal); M48.07 Spinal stenosis, lumbosacral region
CPT/HCPCS: 72148

== ENCOUNTER → 2021-01-04 09:35 | Outpatient (BNVA) | payer OTHER, SELFPAY | PROVIDERS: PCP Nurse Practitioner Family; Referring Provider Nurse Practitioner Family | DX: M17.11 Unilateral primary osteoarthritis, right knee (principal); G20 Parkinson's disease | CPT/HCPCS: 99215 ==

== ENCOUNTER 2021-01-12 01:00 | Outpatient (CLI) | payer OTHER, SELFPAY ==
--- NOTE | 2021-01-12 10:30 | DI.NM_ITS ---
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 TECHNIQUE: Injected Dose: 25 mCi Tc-99m MDP Delayed Images: 2-3 hours. COMPARISON: CR XR KNEE RT 4V+ from 12/23/2020 CR XR KNEE RT 4V+ from 12/23/2020 MR MR LUMBAR SPINE WO from 12/31/2020 MR MR LUMBAR SPINE WO from 12/31/2020 FINDINGS: Whole body bone scan was performed with IV technetium 99 MDP. Recent lumbar spine MRI of 12/31/2020 was reviewed. There is no abnormal focal uptake seen in the L5 vertebral body to correspond to the finding describe d on the MRI scan and therefore is most probably either benign bone lesion or variant marrow signal. There is also no abnormal radiopharmaceutical uptake seen in the remainder of the entire spinal colu mn nor in the skull nor in either ribcage nor in the pelvis and hips and ischial tuberosities. No ab normal uptake in the upper extremities and shoulder girdles. In the lower extremities there is some focal uptake seen in the lateral compartment of the right knee , consistent with degenerative change. Mild increased uptake in the medial compartments of both knee s is consistent with degenerative change. No abnormal uptake in the feet and ankles. No abnormal up take in the sacroiliac joints and hips. IMPRESSION: 1. No significant abnormal uptake in the L5 vertebral body nor elsewhere in the skeleton. Therefore the finding described in the L5 vertebral body on the recent lumbar spine MRI scans most probably eit her benign bone lesion (such as a non typical hemangioma) or just variant bone marrow signal. 2. Some uptake in the knees as described above is consistent with degenerative change. This is most prominent in the lateral compartment of the right knee. DATA REPOSITORY:
== END 2021-01-12 01:20 ==
PROVIDERS: PCP Nurse Practitioner Family; Visit Provider Family Medicine
DX: Q68.8 Other specified congenital musculoskeletal deformities (principal); M17.11 Unilateral primary osteoarthritis, right knee
CPT/HCPCS: 78306

== ENCOUNTER 2021-02-01 12:53 | Outpatient (REF) | payer OTHER, SELFPAY ==
[2021-02-02 14:15] LABS: COVID-19 RT-PCR UVMMC Result Negative (Negative)
== END 2021-02-01 12:54 | disposition home or self-care (01) ==
LOC: LBN 12:53
PROVIDERS: PCP Nurse Practitioner Family; Referring Provider Nurse Practitioner Family; Visit Provider Nurse Practitioner Family
DX: Z20.822 Contact with and (suspected) exposure to COVID-19 (principal); J06.9 Acute upper respiratory infection, unspecified
CPT/HCPCS: U0003

== ENCOUNTER → 2021-12-08 00:35 | Outpatient (CLI) | payer OTHER, SELFPAY ==
--- NOTE | 2021-12-08 | DI.RAD_ITS ---
Exam(s) XR CHEST 2V PA LATERAL EXAM: XR CHEST 2V PA LATERAL CLINICAL HISTORY: CHRONIC COUGH, R05.3. TECHNIQUE: 2D digital imaging was performed. COMPARISON: CR XR CHEST 2V PA LATERAL from 11/24/2018 FINDINGS: 2 views: Heart size is normal. The mediastinum is not widened. Both lung nieto appear. No new infiltrates. No new ominous pulmonary nodules. No pleural effusion s. IMPRESSION: No acute pulmonary findings. DATA REPOSITORY: RADIATION DOSE DELIVERED:
== END ==
PROVIDERS: PCP Nurse Practitioner Family; Visit Provider Family Medicine
DX: R05.3 Chronic cough (principal)
CPT/HCPCS: 71046

== ENCOUNTER 2023-01-17 10:19 | Inpatient (IN) | payer MEDICARE, SELFPAY ==
[2023-01-17] VITALS (51 sets, daily range): BP systolic 117–158; BP diastolic 53–78; PULSE 50–91; RESP 7–29; TEMP 36–36.6; O2SAT 95–100
--- NOTE | 2023-01-17 10:30 | DI.CT_ITS ---
Exam(s) CT ABDOMEN PELVIS W EXAM: CT ABDOMEN PELVIS W CLINICAL HISTORY: lower abdominal pain. TECHNIQUE: Imaging Protocol: Axial computed tomography images with coronal and sagittal reformatted images were created and reviewed CONTRAST MATERIAL: Intravenous: Omnipaque 350 Contrast volume:100 ml Oral: no COMPARISON: CR XR CHEST 2V PA LATERAL from 12/08/2021 FINDINGS: ABDOMEN: Artifact through upper abdomen related to patient arm positioning. Lung Bases: Normal where visualized. Heart is enlarged. Liver: Artifact normal density. No measurable mass. Gallbladder and biliary tract: No radiodense calculus or dilation. Pancreas: Normal density, no abnormal calcifications or inflammatory process. Spleen: Normal. Kidneys: Normal size, contour and axis. No radiodense stones or obstructive uropathy. No suspicious m asses seen. Adrenal glands: No masses seen. Vasculature: Abdominal aorta non-dilated. [id number] atherosclerotic changes. Soft tissues: Unremarkable. PELVIS: Bladder: No gross wall thickening. No calculi.No focal mass. Bowel: No obstruction. No bowel wall thickening. Large quantity of stool throughout colon. Redund ant sigmoid. Empty rectum contains a large quantity of stool.. Peritoneal cavity: No ascites, collection or mesenteric inflammatory response. Bones: Degenerative changes in spine and hips. Reproductive organs: Prostate mildly enlarged. Lymph nodes: Unremarkable. IMPRESSION:: Large quantity of stool throughout the colon. No acute abnormality. RADIATION DOSE DELIVERED: 1,151.29mGy.cm Total DLP DATA REPOSITORY: All CT scans at this facility are submitted to the National Radiology Data Registry (NRDR) Dose Index Registry (DIR) with the [employer] (A[employer]). RADIATION OPTIMIZATION: All CT scans at this facility use at least one of these dose optimization te chniques: automated exposure control; mA and/or kV adjustment per patient size (includes targeted exa ms where dose is matched to clinical indication); or iterative reconstruction.
--- NOTE | 2023-01-17 10:30 | DI.CT_ITS ---
Exam(s) CT HEAD WO EXAM: CT HEAD WO CLINICAL HISTORY: altered mental status. TECHNIQUE: Imaging Protocol: Axial computed tomography images with coronal and sagittal reformatted images were created and reviewed COMPARISON: No exams were available for comparison FINDINGS: Ventricles and Extra axial spaces: Normal in size and morphology for the patient's age. Hemorrhage: None. Cerebral parenchyma: No evidence of acute infarct or mass. Symmetric bilateral cerebellar and basal ganglia calcifications. White matter changes of small vessel disease. Mild atrophy consistent with the patient's age. Midline shift: None. Brainstem/Cerebellum: Normal. Calvarium: Normal. Visualized Paranasal sinuses/Mastoids: Clear. Soft Tissues: Unremarkable. IMPRESSION: No acute intracranial process. RADIATION DOSE DELIVERED: 815.92mGy.cm Total DLP DATA REPOSITORY: All CT scans at this facility are submitted to the National Radiology Data Registry (NRDR) Dose Index Registry (DIR) with the [employer] ([employer]). RADIATION OPTIMIZATION: All CT scans at this facility use at least one of these dose optimization te chniques: automated exposure control; mA and/or kV adjustment per patient size (includes targeted exa ms where dose is matched to clinical indication); or iterative reconstruction.
--- NOTE | 2023-01-17 10:38 | W.ED.GENAD ---
Discharge Plan Disposition Patient Disposition: Admit to [facility] Condition: Stable Discharge Details Clinical Impression: Pneumonia, Altered mental status, Abdominal cramping Primary Care Provider: Rula Danielle ED Provider: Jez Lobato Home Meds and New Rx's Prescriptions: No Action solifenacin 5 mg tablet 5 mg PO DAILY amlodipine 5 mg Tablet 5 mg PO DAILY tamsulosin 0.4 mg Capsule 0.4 mg PO QHS clotrimazole-betamethasone 1-0.05 % Cream 1 applic TOPICAL BID escitalopram oxalate 10 mg Tablet 10 mg PO DAILY rosuvastatin 5 mg Tablet 5 mg PO DAILY dorzolamide-timolol 22.3-6.8 mg/mL Drops 1 drp OPHTHALMIC (EYE) BID allopurinol 300 mg Tablet 300 mg PO DAILY carbidopa-levodopa 25-100 mg Tablet 1 tab PO TID cholecalciferol (vitamin D3) [Vitamin D3] 1,000 unit Capsule 1,000 unit PO DAILY Durezol 0.05 % Drops 1 drp OPHTHALMIC (EYE) BID Medical Decision Making 82 yo male with hx of parkinson's, htn, who comes in with chief complaint of not acting himself. reports that he was well yesterday, did start escitalopram last week for depression. reports she woke up and is unsure how long the patient had been awake. He had all the window's open in their camper and she states that he was telling her that the air was poisoned. He then started to threaten her when she questioned what he was saying which is out of the normal for him. He states that he wasn't saying the air was poisoned but rather the air had a smell of paint to it. called ems who brought him here. Stable vitals on arrival he is alert and oriented x4 but is restless in the bed. He notes he's had a cough for an unknown amount of time and abdominal cramping. He has no focal neuro deficits, clear lungs, soft abdomen with tenderness in the llq, no guarding. 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 Will obtain ct head, cxr, ct abdomen pelvis, and obtain cbc, cmp, lipase, and covid. Denies any chest pain or pressure or dyspnea. pt now sleeping and seems fatigued, still coughing intermittently, states he is normally ambulatory and not fatigued like this. Labs benign, does have a new left upper lobe infiltrate, rest of imaging unremarkable. Given he is altered from his baseline and possibly has a pneumonia will discuss with hospitalist about admission Differential Diagnosis Differential Diagnosis: diverticulitis, electrolyte abnormality, covid, pneumonia Medical Records Medical records reviewed: Yes I reviewed the patient's medical records. Imaging Data Radiologic Study: Attestation: I personally reviewed and interpreted this imaging study as follows: Imaging: CT Scan Radiologist's impression: no acute findings head ct Radiologic Study #2: Attestation: I personally reviewed and interpreted this imaging study as follows: Imaging: CT Scan Radiologist's impression: MPRESSION::? Large quantity of stool throughout the colon.? No acute abnormality.? Radiologic Study #3: Attestation: I personally reviewed and interpreted this imaging study as follows: Imaging: X-Ray Radiologist's impression: Exam(s) XR CHEST 2V PA ? LATERAL EXAM:? XR CHEST 2V PA ? LATERAL CLINICAL HISTORY:? cough TECHNIQUE:? 2D digital imaging was performed. COMPARISON:? CR XR CHEST 2V PA ? LATERAL from 12/08/2021 FINDINGS: HEART: Normal size for projection..? Aorta: Not dilated. PULMONARY VASCULATURE: Normal. LUNGS: Increased density seen in the left upper lobe not previously seen could represent acute infiltrate..? Increased interstitial markings bilaterally, likely chronic.? No findings to suggest pulmonary edema. PLEURAL SPACE: No pleural effusion or pneumothorax. BONE:Unremarkable for age.? IMPRESSION: Question of left upper lobe infiltrate. Lab Data Lab results reviewed: Yes I reviewed the patient's lab results. HPI General Mode of arrival: EMS. Date/Time Provider Initiated Documentation: 01/17/23 10:30. Information obtained by: patient and family. History of Present Illness 82 year old M presents to the emergency department with the chief complaint of not acting himself, described as moderate, Patient reports no radiation. Patient started experiencing this unknown and it has been constant. No relieving factors improve symptom(s), No exacerbating factors reported . Patient notes cough. Patient did receive the following treatments prior to arrival, none Related Data Home Medications Medication Instructions Recorded Confirmed allopurinol 300 mg tablet 300 mg PO DAILY 11/20/18 01/04/21 carbidopa 25 mg-levodopa 100 mg 1 tab PO TID 11/20/18 01/04/21 tablet cholecalciferol (vitamin D3) 25 1,000 unit PO DAILY 11/20/18 01/04/21 mcg (1,000 unit) capsule (Vitamin D3) difluprednate 0.05 % eye drops 1 drp ophthalmic (eye) BID 11/20/18 01/04/21 (Durezol) dorzolamide 22.3 mg-timolol 6.8 1 drp ophthalmic (eye) BID 11/20/18 01/04/21 mg/mL eye drops amlodipine 5 mg tablet 5 mg PO DAILY 12/23/20 01/04/21 clotrimazole-betamethasone 1 1 applic topical BID 12/23/20 01/04/21 %-0.05 % topical cream escitalopram oxalate 10 mg tablet 10 mg PO DAILY 12/23/20 01/04/21 rosuvastatin 5 mg tablet 5 mg PO DAILY 12/23/20 01/04/21 tamsulosin 0.4 mg capsule 0.4 mg PO QHS 12/23/20 01/04/21 solifenacin 5 mg tablet 5 mg PO DAILY 01/04/21 01/04/21 Allergies Allergy/AdvReac Type Severity Reaction Status Date / Time codeine Allergy Unverified 12/23/20 12:16 General Stated Complaint: AMS/LOC BRENT: 3 Review of Systems All systems reviewed & are unremarkable except as noted in HPI and below Constitutional Constitutional: Denies chills, Denies fever(s) and Denies weakness Cardiovascular Cardiovascular: Denies chest pain and Denies dyspnea Respiratory Respiratory: Denies dyspnea Gastrointestinal Gastrointestinal: Denies abdominal pain, Denies nausea and Denies vomiting Integumentary/Breasts Skin/Breast: Denies rash Neurologic Neurologic: Denies weakness PFSH All Active Problems (Updated 01/17/23 @ 13:45 by Jez Lobato MD) Pneumonia (Acute) Altered mental status (Acute) Abdominal cramping (Acute) Parkinsonian festinating gait determined by examination (Acute) Osteoarthritis of right knee (Acute) Chronic knee pain (Acute) Medical History (Updated 01/17/23 @ 13:45 by Jez Lobato MD) Gout HTN (hypertension) Parkinsons disease Surgical History History of repair of retinal defect by laser photocoagulation Social History Smoking/Tobacco Use Status: Former Tobacco Use Smoking risk assessment performed?: Yes Alcohol Intake: current Alcohol Intake frequency: holidays/special occasions only Drug use: Never Substance use type: does not use Housing: house Do you feel safe at home: Yes Do you feel safe in your relationship?: Yes Exam Const General: no acute distress Orientation: alert HENMI Head: normal to inspection Ears: external ears normal General nose exam: external nose normal Mouth: moist mucous membranes Eyes General: appearance normal, both eyes and all related structures Neck Neck: normal visual inspection Resp Effort & Inspection: normal respiratory effort and able to speak in complete sentences Auscultation: clear to auscultation bilaterally Cardio Rate: regular rate Heart Sounds: no murmurs GI Palpation: soft and tender Skin General skin exam: no rashes or lesions noted Neuro General: patient alert Extrem General: normal to inspection Psych Mental Status: mental status grossly normal Course Vital Signs Vital signs: Vital Signs Temperature 36.6 C 01/17/23 10:22 Pulse 63 01/17/23 10:22 Respiratory Rate 16 01/17/23 10:22 Blood Pressure 158/78 H 01/17/23 10:22 Pulse Oximetry 100 01/17/23 10:22 Temperature 36.6 C 01/17/23 10:22 Temperature Source Temporal Artery Scan 01/17/23 10:22 Pulse 63 01/17/23 10:22 Respiratory Rate 16 01/17/23 10:22 Respiratory Effort Normal 01/17/23 10:29 Blood Pressure 158/78 H 01/17/23 10:22 Blood Pressure Position Sitting 01/17/23 10:22 Pulse Oximetry 100 01/17/23 10:22 Oxygen Delivery Method Room Air 01/17/23 10:22 Oxygen Flow Rate 0 01/17/23 10:22
[2023-01-17 10:52] LABS: Abs Immature Grans 0.01 10^3/uL (0.0-0.06); Absolute Basophil Count 0.09 10^3/uL (0.0-0.2); Absolute Eosinophil Count 0.24 10^3/uL (0.0-0.7); Absolute Lymphocyte Count 1.28 10^3/uL (1.2-3.4); Absolute Monocyte Count 0.57 10^3/uL (0.1-0.8); Absolute Neutrophil Count 2.49 10^3/uL (1.2-6.7); Basophils % 1.9; Eosinophils % 5.1; HCT 36.6 % (40.0-50.0); HGB 12.8 g/dL (13.5-17.5); Immature Grans % 0.2; Lymphocytes % 27.4; MCH 32.7 pg (27.0-33.0); MCV 93 fL (80-95); MPV 9.6 fL (8.0-11.0); Monocytes % 12.2; Neutrophils % 53.2; Platelet Count 193 10^3/uL (130-400); RBC 3.92 10^6/uL (4.36-5.78); RDW 14.3 % (11.8-14.1); RDW-SD 49.1 fL; WBC 4.68 10^3/uL (4.4-10.8)
[2023-01-17] MEDS: LORazepam 2 MG/ML VIAL 0.5 MG IVP (10:53)
[2023-01-17 11:00] LABS: Source Nasal/Nares
[2023-01-17 11:06] LABS: PTT Activated 27.9 sec (21.5-31.9); Prothrombin Time 9.8 sec (9.3-11.0)
[2023-01-17 11:15] LABS: ALT 31 U/L (16-63); AST 20 U/L (15-37); Albumin 4.1 g/dL (3.4-5.0); Alkaline Phosphatase 103 U/L (46-116); Anion Gap 7.9 mmol/L (3-11); BUN 25 mg/dL (7-18); Bilirubin, Total 0.8 mg/dL (0.2-1.0); CO2 30.1 mmol/L (21.0-32.0); CREATININE 0.8 mg/dL (0.70-1.30); Chloride 103 mmol/L (98-107); Estimated GFR 87.27 (mL/min/1.73m2); Glucose 89 mg/dL (74-106); Magnesium 2.1 mg/dL (1.8-2.4); Potassium 3.9 mmol/L (3.5-5.1); Sodium 141 mmol/L (136-145); TSH (W/Ref FT4) 3.38 uIU/mL (0.36-3.74); Total Protein 7.2 g/dL (6.4-8.2)
[2023-01-17 11:27] LABS: Bilirubin Negative (Negative); Blood Negative (Negative); Clarity Clear (Clear); Glucose Negative (Negative); Ketones Negative (Negative); Leukocyte Esterase Negative (Negative); Nitrite Negative (Negative); Specific Gravity 1.015 (1.005-1.025); Urobilinogen 0.2 mg/dL (Up to 0.2)
[2023-01-17 11:35] LABS: COVID-19 PCR Negative (Negative)
[2023-01-17] MEDS: Normal Saline Flush 10 ML SYR IVP (11:51)
[2023-01-17] MEDS: Normal Saline - Diluent 50 ML VIAL IJ (11:52)
[2023-01-17] MEDS: Omnipaque 350 MG/ML 500 ML BTL-Imaging package 100 ML IJ (11:52)
--- NOTE | 2023-01-17 12:45 | DI.RAD_ITS ---
Exam(s) XR CHEST 2V PA LATERAL EXAM: XR CHEST 2V PA LATERAL CLINICAL HISTORY: cough TECHNIQUE: 2D digital imaging was performed. COMPARISON: CR XR CHEST 2V PA LATERAL from 12/08/2021 FINDINGS: HEART: Normal size for projection.. Aorta: Not dilated. PULMONARY VASCULATURE: Normal. LUNGS: Increased density seen in the left upper lobe not previously seen could represent acute infilt rate.. Increased interstitial markings bilaterally, likely chronic. No findings to suggest pulmonar y edema. PLEURAL SPACE: No pleural effusion or pneumothorax. BONE:Unremarkable for age. IMPRESSION: Question of left upper lobe infiltrate. DATA REPOSITORY: RADIATION DOSE DELIVERED:
[2023-01-17 13:04] LABS: Procalcitonin < 0.1 ng/mL
[2023-01-17 13:35] LABS: BE (Venous) 3 mmol/L (-2-3); HCO3 (Venous) 29 mmol/L (23-28); O2 Sat (Venous) 75 %; TCO2 (Venous) 26 mmol/L (24-29); pCO2 (Venous) 50 mmHg (41-51); pH (Venous) 7.36 (7.31-7.41); pO2 (Venous) 40 mmHg
[2023-01-17] MEDS: cefTRIAXone 2 GM/50 ML BAG IVPB (13:50)
[2023-01-17] MEDS: AZITHROMYCIN 500 MG in Normal Saline 250 ML 250 MG IVPB (14:28)
[2023-01-17] MEDS: PIPERACILLIN/TAZO 4.5 GM in Normal Saline 100 ML IVPB (16:35)
--- NOTE | 2023-01-17 16:37 | W.PM.HP.N ---
Date of service: 01/17/23 Time of Service: 16:38 Assessment and Plan Assessment and plan (1) Altered mental status: Status: Acute Assessment and plan: Dr Tanner saw this patient in his office on 12/21. Patient was started on finestride 5 mg daily, tamsulosin 0.4 mg and citalopram. He was seen again 01/11 and was doing [address] Dr Tanner reports patient is having advancing mood symptoms of dementia Neuro consult (2) Parkinsons disease: Assessment and plan: Placed on observation status for acute AMS/delirium Pmhx of Parkinsons disease Unsure of baseline memory/mental status, but states it was different this morning Home meds reconciled with Dr Tanner who sees patient at his [facility] 25/100 (3) Pneumonia: Status: Acute Assessment and plan: STEPHEN pneumonia zosyn and Doxy BC Sputum Cx Benzonatate Guaifenesin Urine legionella/strep pending MRSA pending Mycoplasma pending IS/Acapella Respiratory therapy assessment Could be cause of change in mental status Speech consult ? aspiration pneumonia in setting of Parkinson's Disease (4) HTN (hypertension): Assessment and plan: Chronic, continue amlodipine (5) DVT prophylaxis: Status: Acute Assessment and plan: Enoxaparin 40 mg daily (6) Discharge planning issues: Status: Acute Assessment and plan: Home when medically stable Discussed with Dr Lincoln (7) Full code status: Status: Acute Assessment and plan: Unable to determine code status - Dr Tanner's office has no record of code status, I did leave vmail for , patient with altered mental status and therefore not asked - therefore at this time he is a full code until we learn otherwise. History of Present Illness History of Present Illness Chief Complaint: Not acting himself, cough Narrative: This is an 82 yo male with past medical history of parkinson's disease, enlarged prostate and hypertension, who presented to the [facility] ED for what his described as not acting himself. reported patient was well yesterday. reports she woke up and is unsure how long the patient had been awake. He had all the window's open in their camper and she states that he was telling her that the air was poisoned. He then started to threaten her when she questioned what he was saying which is out of the normal for him. He stated he wasn't saying the air was poisoned but rather the air had a smell of paint to it. His called ems. Patient had stable vitals in the ED, was alert and oriented x4 but appeared restless in bed. Patient denied nausea, vomiting, fever, chest pain, shortness of breath, he does have a cough. Labs in the ED unremarkable. Chest xray with left upper lobe infiltrate, other imaging unremarkable. Covid is negative. Patient is placed on observation status on the medical floor. Review of Systems Unobtainable due to mental condition PFSH All Active Problems (Updated 01/17/23 @ 19:18 by Sasha Blue NP) Full code status (Acute) Discharge planning issues (Acute) DVT prophylaxis (Acute) Pneumonia (Acute) Altered mental status (Acute) Abdominal cramping (Acute) Parkinsonian festinating gait determined by examination (Acute) Osteoarthritis of right knee (Acute) Chronic knee pain (Acute) Medical History (Updated 01/17/23 @ 19:18 by Sasha Blue NP) Gout HTN (hypertension) Parkinsons disease Surgical History History of repair of retinal defect by laser photocoagulation Social History Smoking/Tobacco Use Status: Former Tobacco Use Smoking risk assessment performed?: Yes Alcohol Intake: current Alcohol Intake frequency: holidays/special occasions only Drug use: Never Substance use type: does not use Housing: condominium Do you feel safe at home: Yes Do you feel safe in your relationship?: Yes Meds Allergies and Home Medications Allergies Allergy/AdvReac Type Severity Reaction Status Date / Time codeine Allergy Unverified 12/23/20 12:16 Home Medications Medication Instructions Recorded Confirmed Type allopurinol 300 mg tablet 300 mg PO DAILY 11/20/18 01/17/23 History carbidopa 25 mg-levodopa 100 mg 1 tab PO TID 11/20/18 01/17/23 History tablet cholecalciferol (vitamin D3) 25 1,000 unit PO DAILY 11/20/18 01/17/23 History mcg (1,000 unit) capsule (Vitamin D3) difluprednate 0.05 % eye drops 1 drp ophthalmic (eye) BID 11/20/18 01/17/23 History (Durezol) dorzolamide 22.3 mg-timolol 6.8 1 drp ophthalmic (eye) BID 11/20/18 01/17/23 History mg/mL eye drops amlodipine 5 mg tablet 5 mg PO DAILY 12/23/20 01/17/23 History clotrimazole-betamethasone 1 1 applic topical BID 12/23/20 01/17/23 History %-0.05 % topical cream escitalopram oxalate 10 mg tablet 10 mg PO DAILY 12/23/20 01/17/23 History rosuvastatin 5 mg tablet 5 mg PO DAILY 12/23/20 01/17/23 History tamsulosin 0.4 mg capsule 0.4 mg PO QHS 12/23/20 01/17/23 History solifenacin 5 mg tablet 5 mg PO DAILY 01/04/21 01/17/23 History Exam Const General: no acute distress Orientation: alert HENRI Head: normal to inspection Ears: external ears normal General nose exam: external nose normal Mouth: moist mucous membranes Eyes General: appearance normal, both eyes and all related structures Neck Neck: normal visual inspection Resp Effort & Inspection: normal respiratory effort and able to speak in complete sentences Auscultation: clear to auscultation bilaterally Cardio Rate: regular rate Heart Sounds: no murmurs GI Palpation: soft and tender Skin General skin exam: no rashes or lesions noted Neuro General: patient alert Extrem General: normal to inspection Psych Mental Status: mental status grossly normal Results Labs 01/17/23 10:40 01/17/23 10:40 Labs: Laboratory Results - last 24 hr 01/17/23 01/17/23 01/17/23 10:40 10:40 10:40 WBC 4.68 RBC 3.92 L Hgb 12.8 L Hct 36.6 L MCV 93 MCH 32.7 MCHC 35.0 RDW 14.3 H Plt Count 193 MPV 9.6 Immature Gran % 0.2 Neutrophils % 53.2 Lymphocytes % 27.4 Monocytes % 12.2 Eosinophils % 5.1 Basophils % 1.9 Nucleated RBC % 0.0 Absolute Neutrophils 2.49 Absolute Lymphocytes 1.28 Absolute Monocytes 0.57 Absolute Eosinophils 0.24 Absolute Basophils 0.09 PT 9.8 INR 1.0 APTT 27.9 VBG pH VBG pCO2 VBG pO2 VBG HCO3 VBG Total CO2 VBG O2 Saturation VBG Base Excess Sodium 141 Potassium 3.9 Chloride 103 Carbon Dioxide 30.1 Anion Gap 7.9 BUN 25 H Creatinine 0.8 Est GFR (CKD-EPI 2020) 87.27 Glucose 89 Calcium 9.0 Magnesium 2.1 Total Bilirubin 0.8 AST 20 ALT 31 Alkaline Phosphatase 103 Total Protein 7.2 Albumin 4.1 Procalcitonin TSH 3.38 Urine Color Urine Clarity Urine pH Ur Specific [place] Urine Protein Urine Ketones Urine Blood Urine Nitrite Urine Bilirubin Urine Urobilinogen Ur Leukocyte Esterase Urine Glucose COVID-19 Source SARS-CoV-2 (PCR) 01/17/23 01/17/23 01/17/23 10:40 10:57 11:19 WBC RBC Hgb Hct MCV MCH MCHC RDW Plt Count MPV Immature Gran % Neutrophils % Lymphocytes % Monocytes % Eosinophils % Basophils % Nucleated RBC % Absolute Neutrophils Absolute Lymphocytes Absolute Monocytes Absolute Eosinophils Absolute Basophils PT INR APTT VBG pH VBG pCO2 VBG pO2 VBG HCO3 VBG Total CO2 VBG O2 Saturation VBG Base Excess Sodium Potassium Chloride Carbon Dioxide Anion Gap BUN Creatinine Est GFR (CKD-EPI 2020) Glucose Calcium Magnesium Total Bilirubin AST ALT Alkaline Phosphatase Total Protein Albumin Procalcitonin < 0.1 TSH Urine Color Yellow Urine Clarity Clear Urine pH 7.0 Ur Specific [place] 1.015 Urine Protein Negative Urine Ketones Negative Urine Blood Negative Urine Nitrite Negative Urine Bilirubin Negative Urine Urobilinogen 0.2 Ur Leukocyte Esterase Negative Urine Glucose Negative COVID-19 Source Nasal/Nares SARS-CoV-2 (PCR) Negative 01/17/23 13:25 WBC RBC Hgb Hct MCV MCH MCHC RDW Plt Count MPV Immature Gran % Neutrophils % Lymphocytes % Monocytes % Eosinophils % Basophils % Nucleated RBC % Absolute Neutrophils Absolute Lymphocytes Absolute Monocytes Absolute Eosinophils Absolute Basophils PT INR APTT VBG pH 7.36 VBG pCO2 50 VBG pO2 40 VBG HCO3 29 H VBG Total CO2 26 VBG O2 Saturation 75 VBG Base Excess 3 Sodium Potassium Chloride Carbon Dioxide Anion Gap BUN Creatinine Est GFR (CKD-EPI 2020) Glucose Calcium Magnesium Total Bilirubin AST ALT Alkaline Phosphatase Total Protein Albumin Procalcitonin TSH Urine Color Urine Clarity Urine pH Ur Specific [place] Urine Protein Urine Ketones Urine Blood Urine Nitrite Urine Bilirubin Urine Urobilinogen Ur Leukocyte Esterase Urine Glucose COVID-19 Source SARS-CoV-2 (PCR) Last Vital Signs Temp 36.6 C 01/17/23 10:22 Pulse 53 L 01/17/23 16:30 Resp 11 L 01/17/23 11:20 BP 136/60 01/17/23 16:30 Pulse Ox 98 01/17/23 16:31 Time Spent Time spent with Patient: 55-74 minutes Time was spent: preparing to see the patient(eg.review tests), obtaining and/or reviewing separately otained hiistory, ordering medications,tests, procedures, referring, communicating with other health youth care worker, indepentently interpreting results, counseling the patient and care coordination
--- NOTE | 2023-01-17 16:40 | NCONE_ITS ---
Date of service: 01/17/23 Time of Service: 16:40 Assessment and Plan Assessment and plan (1) Altered mental status: Status: Acute (2) Parkinsons disease: Assessment and plan: Mr. Martínez was admitted with acute AMS/delirium and has a known history of Parkinsons disease and ?memory loss. Currently alot unknown including baseline memory/mental status and home medications. He is also quite somnolent at present. When he awakens, if still agitated, could consider use of quetiapine which would not likely worsen his Parkinsons. Consider a brain MRI, particularly if he has any focal findings. Would hold escitalopram at present and consider holding Vesicare which is an anticholinergic and could potentiate AMS. Ensure he continues his home PD medications - for now reasonable to give Sineme t CR 25/100mg TID. Consider obtaining outside Neurology records as this may be helpful. He will need neurology outpatient follow-up - will need to figure out what he currently has scheduled. History of Present Illness History of Present Illness Chief Complaint: altered mental status Narrative: Handedness: unknown. HPI: Mr. Martínez is an 82 year-old Parkinsons and per [facility] notes HTN, HLD, gout, depression, BPH, cervical and lumbar stenosis, and GERD. Mr. Martínez is heavily asleep at present. When he is awakened, he is incoherent and then immediately goes back to sleep. There is no family at the bedside. So history is from a chart review. Per ER notes, woke up this am and he was already awake. Unknown if he slept overnight. Agitated, paranoid, and combative at home. Brought to ER where per report was back to baseline and oriented x 4. Work-up including W 4.68, Hgb 12.8, Na 141, K 3.9, Cr 0.8, Mag 2.1, TSH 3.38, UA neg. CXR concerning for STEPHEN PNA. He reportedly has had a cough of unknown duration. -CTH (01/17/23): bilateral cerebellar and BG calcifications. Mild atrophy and chronic vascular changes consistent with age. No acute findings. I reviewed these images personally and this is my personal interpretation. He was apparently started on escitalopram last week. His home medications are unknown at this time, though he may be on Vesicare as well. He was last seen by [facility] in Jan 2021. I reviewed those records. He primarily lives in [place] and sees neurologist Dr. Omid Snyder in [place]. He also lives part of the year in [place] with a neurologist there and then up here where he has seen [facility] in the past. He was diagnosed with PD in ~2013 in [place]. As of 2019, he was having memory issues and minor visual hallucinations. As of Jan 2021, he was on Sinemet CR 25/100mg TID. Review of Systems All systems reviewed & are unremarkable except as noted in HPI and below PFSH All Active Problems (Updated 01/17/23 @ 13:45 by Jez Lobato MD) Pneumonia (Acute) Altered mental status (Acute) Abdominal cramping (Acute) Parkinsonian festinating gait determined by examination (Acute) Osteoarthritis of right knee (Acute) Chronic knee pain (Acute) Medical History (Updated 01/17/23 @ 13:45 by Jez Lobato MD) Gout HTN (hypertension) Parkinsons disease Surgical History History of repair of retinal defect by laser photocoagulation Social History Smoking/Tobacco Use Status: Former Tobacco Use Smoking risk assessment performed?: Yes Alcohol Intake: current Alcohol Intake frequency: holidays/special occasions only Drug use: Never Substance use type: does not use Housing: house Do you feel safe at home: Yes Do you feel safe in your relationship?: Yes Visit Medication and Allergies Active Medications Generic Name Dose Route Start Last Admin Trade Name Freq PRN Reason Stop Dose Admin Allopurinol 300 mg 01/18/23 08:30 Allopurinol 300 Mg Tab PO DAILY PHUONG Amlodipine Besylate 5 mg 01/18/23 08:30 Amlodipine 5 Mg Tab PO DAILY PHUONG Carbidopa/Levodopa 1 tab 01/17/23 20:00 Carbidopa 25/Levodopa 100 Tab PO TID PHUONG Enoxaparin Sodium 40 mg 01/17/23 15:00 Enoxaparin 40 Mg/0.4 Ml Syr SC Q24H PHUONG Sodium Chloride 500 mls @ 0 mls/hr 01/17/23 10:13 Saline 500ml Bag IV PRN PRN As Directed Doxycycline Hyclate 100 mg/ 100 mls @ 100 mls/hr 01/17/23 14:30 Sodium Chloride IVPB Q12H PHUONG Piperacillin Sod/Tazobactam 50 mls @ 12.5 mls/hr 01/17/23 23:00 Sod 3.375 gm/ Sodium Chloride IVPB Q8H PHUONG IV Miscellaneous Supplies 1 each 01/17/23 10:15 Iv Access IV DIRECTED PHUONG Iohexol 100 ml 01/17/23 12:00 01/17/23 11:52 Omnipaque 350 Mg/Ml 500 Ml Btl-Imaging Package IJ 02/16/23 23:59 100 ml DIRECTED PHUONG Administration Non-Formulary Medication 1 drp 01/17/23 20:00 Difluprednate [Durezol] OP BID PHUONG Non-Formulary Medication 1,000 unit 01/18/23 08:30 Cholecalciferol (Vitamin D3) [Vitamin D3] PO DAILY PHUONG Non-Formulary Medication 1 drp 01/17/23 20:00 Dorzolamide-Timolol OP BID PHUONG Polyethylene Glycol 17 gm 01/17/23 20:00 Polyethylene Glycol 3350 17 Gm Packet PO BID PHUONG Sodium Chloride 0 ml 01/17/23 10:13 01/17/23 11:51 Normal Saline Flush 10 Ml Syr IVP 10 ml PRN PRN Administration Sodium Chloride 50 ml 01/17/23 12:00 01/17/23 11:52 Normal Saline - Diluent 50 Ml Vial IJ 50 ml .FOR DI USE PHUONG Administration Tamsulosin HCl 0.4 mg 01/17/23 17:00 Tamsulosin 0.4 Mg Capcr PO QHS PHUONG Allergies codeine Allergy (Unverified 12/23/20 12:16) Exam Narrative Exam Narrative: Physical Exam: Constitutional: Patient sleeping and in no acute distress; when I woke him up, he was confused and then quickly went back to sleep Neck: Supple, no meningismus/rigidity CV: RRR Resp: CTAB Abd: Soft, nontender, nondistended, +BS Extrem: no edema in the LE Neuro: MS/Language/Speech: somnolent but arousable, mild dysarthria -but may be due to sleep CN: PERRL, EOMI, no facial asymmetry, hearing intact; could not test rest due to sleepiness Motor: Could not test Sensation: Could not test Reflexes: 1+/2+ DTRs, downgoing toes Coordination: could not test Gait: Could not test Results Last Vital Signs Temp 97.9 F 01/17/23 10:22 Pulse 53 L 01/17/23 16:30 Resp 11 L 01/17/23 11:20 BP 136/60 01/17/23 16:30 Pulse Ox 98 01/17/23 16:31 Labs 01/17/23 10:40 01/17/23 10:40 Labs: Laboratory Results - last 24 hr 01/17/23 01/17/23 01/17/23 10:40 10:40 10:40 WBC 4.68 RBC 3.92 L Hgb 12.8 L Hct 36.6 L MCV 93 MCH 32.7 MCHC 35.0 RDW 14.3 H Plt Count 193 MPV 9.6 Immature Gran % 0.2 Neutrophils % 53.2 Lymphocytes % 27.4 Monocytes % 12.2 Eosinophils % 5.1 Basophils % 1.9 Nucleated RBC % 0.0 Absolute Neutrophils 2.49 Absolute Lymphocytes 1.28 Absolute Monocytes 0.57 Absolute Eosinophils 0.24 Absolute Basophils 0.09 PT 9.8 INR 1.0 APTT 27.9 VBG pH VBG pCO2 VBG pO2 VBG HCO3 VBG Total CO2 VBG O2 Saturation VBG Base Excess Sodium 141 Potassium 3.9 Chloride 103 Carbon Dioxide 30.1 Anion Gap 7.9 BUN 25 H Creatinine 0.8 Est GFR (CKD-EPI 2020) 87.27 Glucose 89 Calcium 9.0 Magnesium 2.1 Total Bilirubin 0.8 AST 20 ALT 31 Alkaline Phosphatase 103 Total Protein 7.2 Albumin 4.1 Procalcitonin TSH 3.38 Urine Color Urine Clarity Urine pH Ur Specific [place] Urine Protein Urine Ketones Urine Blood Urine Nitrite Urine Bilirubin Urine Urobilinogen Ur Leukocyte Esterase Urine Glucose COVID-19 Source SARS-CoV-2 (PCR) 01/17/23 01/17/23 01/17/23 10:40 10:57 11:19 WBC RBC Hgb Hct MCV MCH MCHC RDW Plt Count MPV Immature Gran % Neutrophils % Lymphocytes % Monocytes % Eosinophils % Basophils % Nucleated RBC % Absolute Neutrophils Absolute Lymphocytes Absolute Monocytes Absolute Eosinophils Absolute Basophils PT INR APTT VBG pH VBG pCO2 VBG pO2 VBG HCO3 VBG Total CO2 VBG O2 Saturation VBG Base Excess Sodium Potassium Chloride Carbon Dioxide Anion Gap BUN Creatinine Est GFR (CKD-EPI 2020) Glucose Calcium Magnesium Total Bilirubin AST ALT Alkaline Phosphatase Total Protein Albumin Procalcitonin < 0.1 TSH Urine Color Yellow Urine Clarity Clear Urine pH 7.0 Ur Specific [place] 1.015 Urine Protein Negative Urine Ketones Negative Urine Blood Negative Urine Nitrite Negative Urine Bilirubin Negative Urine Urobilinogen 0.2 Ur Leukocyte Esterase Negative Urine Glucose Negative COVID-19 Source Nasal/Nares SARS-CoV-2 (PCR) Negative 01/17/23 13:25 WBC RBC Hgb Hct MCV MCH MCHC RDW Plt Count MPV Immature Gran % Neutrophils % Lymphocytes % Monocytes % Eosinophils % Basophils % Nucleated RBC % Absolute Neutrophils Absolute Lymphocytes Absolute Monocytes Absolute Eosinophils Absolute Basophils PT INR APTT VBG pH 7.36 VBG pCO2 50 VBG pO2 40 VBG HCO3 29 H VBG Total CO2 26 VBG O2 Saturation 75 VBG Base Excess 3 Sodium Potassium Chloride Carbon Dioxide Anion Gap BUN Creatinine Est GFR (CKD-EPI 2020) Glucose Calcium Magnesium Total Bilirubin AST ALT Alkaline Phosphatase Total Protein Albumin Procalcitonin TSH Urine Color Urine Clarity Urine pH Ur Specific [place] Urine Protein Urine Ketones Urine Blood Urine Nitrite Urine Bilirubin Urine Urobilinogen Ur Leukocyte Esterase Urine Glucose COVID-19 Source SARS-CoV-2 (PCR)
[2023-01-17] MEDS: DOXYCYCLINE 100 MG in Normal Saline 100 ML IVPB (18:10)
[2023-01-17] MEDS: Enoxaparin 40 MG/0.4 ML SYR SC (18:10)
[2023-01-17] MEDS: Tamsulosin 0.4 MG CAPCR PO (20:11)
[2023-01-17] MEDS: Benzonatate 200 MG CAP PO (20:12)
[2023-01-17] MEDS: Polyethylene Glycol 3350 17 GM PACKET PO (20:12)
[2023-01-17] MEDS: guaiFENesin 600 MG TABCR PO (20:16)
[2023-01-17] MEDS: PIPERACILLIN/TAZO 3.375 GM in Normal Saline 50 ML IVPB (20:19)
--- NOTE | 2023-01-18 | DI.MRI_ITS ---
Exam(s) MR CERVICAL SPINE WO EXAM: MR CERVICAL SPINE WO CLINICAL HISTORY: parasthesias TECHNIQUE: Multiplanar multisequence MRI of the cervical spine was performed without intravenous con trast. Field of view includes top of the dens through T2. COMPARISON: No exams were available for comparison FINDINGS: The axial images are somewhat limited due to motion. BONES: Vertebral body heights are maintained. Some reversal of the normal cervical lordosis at C6-7. bone marrow signal intensity is within normal limits. Facet degenerative changes noted throughout. CERVICAL CORD: Craniovertebral junction is unremarkable. There is the diffuse thinning of the AP dim ension of the cervical cord at the C6-7 level. Level. SOFT TISSUES: Unremarkable. C2-3: No disc herniation or bulge is identified. No evidence of neural foraminal narrowing. No signi ficant central canal stenosis. C3-4: No disc herniation or bulge is identified. Mild bilateral neural foraminal narrowing. No signif icant central canal stenosis. C4-5: No disc herniation or bulge is identified. Moderate bilateralneural foraminal narrowing. No si gnificant central canal stenosis. C5-6: Mild loss of disc height and endplate osteophytes. Asymmetric right-sided osteophyte versus sm all disc right paracentral protrusion causing mild effacement of the anterior CSF space. Moderate to severe bilateral neural foraminal narrowing.. C6-7: Moderate loss of disc height. Some reversal of the normal cervical lordosis. Broad-based disc bulging causing narrowing of the AP dimension of the central canal. CSF remains present around the cord. The cord is narrowed in the AP dimension at this level. Severe bilateral neural foraminal karuna rowing. C7-T1: No disc herniation or bulge is identified. No evidence of neural foraminal narrowing. No signi ficant central canal stenosis. IMPRESSION: Degenerative disc changes and facet degenerative changes combine to produce bilateral neural foramina l narrowing, greatest at C5-6 and C6-7. Narrowing of the central canal at C6-7 with thinning of the diameter of the cervical cord at this level. Normal cord signal. DATA REPOSITORY:
[2023-01-18] MEDS: Acetaminophen 325 MG TAB 650 MG PO (01:44)
[2023-01-18 02:29] VITALS: BP 133/76; PULSE 88; RESP 24; TEMP 37.7; O2SAT 98
--- NOTE | 2023-01-18 03:35 | PGE_ITS ---
Date of Service Date of service: 01/18/23 Time of Service: 03:35 Assessment and Plan Assessment and plan (1) Neck pain: Status: Acute Assessment and plan: I think this is possibly a form of dystonia related to parkinsons disease. I was concerned about cervical pathology and even myelopathy given report of hand/feet numbness, but his exam is not c/w this, no upper motor neuron signs. He had a normal CT on admission of head. Exam not c/w meningitis. Intermittent spasm like nature of pain is c/w muscular. He is getting his Levodopa/Carbodopa. I did read about off dystonia in the staff climate scientist, but I would defer this to neurology Try heating pad, APAP prn Low dose diazepam for muscle relaxant as a trial (2) Altered mental status: Status: Acute Assessment and plan: I did not see him when he came in, but his mental status is at his recent baseline now. He is oriented and alert, but has some short term memory issues. (3) Pneumonia: Status: Acute Assessment and plan: He is being treated with pip/tazo and doxycycline. I don't see signs of other infections. Subjective Subjective Interval history since last seen: I was called because Landon was reporting pain in his neck going down his spine. I went to see him and he was alert and oriented. History was a little vague, but describing tightness on the side of his neck on both sides. States he feels it down his spine to his feet, but pain is not always there. No increase in pain with moving neck around. Pain was a little better with massage. He is also getting a dry cough, mild SOB. no chest pain. He has numb feeling in his hands and feet equal bilaterally, but no weakness. He has been getting some chills. He describes smelling a gas leak or machine smell in his camp before coming in yesterday. Exam Narrative Exam Narrative: A&O x 3, knows day of week, month/year, knows he is in the hospital but initially calls the town [facility]. Remembers he is living on a [place] on [facility]. I talked with him for 20 minutes and the entire time he was lying in bed and holding his head above the pillow. He points to his trapeizia and states his vessels are tight. He is able to move head in all directions, roughly symmetric, with no increase in pain. He felt better after I was palpating his neck muscles. CV: RRR, no m/g Lungs: CTAB, nl effort at rest, some coughing intermittently abd: soft, NT/ND Skin: warm, dry. no rashes Neuro: increased tone diffusely. CN 2-12 grossly intact. symmetric strength UE/LE. Nl DTRs UE/LE. no babinski or clonus in LE. Sensation intact in extremities, though feels less in feet. Objective Last Vital Signs Temp 37.7 C H 01/18/23 02:29 Pulse 88 01/18/23 02:29 Resp 24 01/18/23 02:29 BP 133/76 01/18/23 02:29 Pulse Ox 98 01/18/23 02:29 Laboratory Results - last 24 hr 01/17/23 01/17/23 01/17/23 10:40 10:40 10:40 WBC 4.68 RBC 3.92 L Hgb 12.8 L Hct 36.6 L MCV 93 MCH 32.7 MCHC 35.0 RDW 14.3 H Plt Count 193 MPV 9.6 Immature Gran % 0.2 Neutrophils % 53.2 Lymphocytes % 27.4 Monocytes % 12.2 Eosinophils % 5.1 Basophils % 1.9 Nucleated RBC % 0.0 Absolute Neutrophils 2.49 Absolute Lymphocytes 1.28 Absolute Monocytes 0.57 Absolute Eosinophils 0.24 Absolute Basophils 0.09 PT 9.8 INR 1.0 APTT 27.9 VBG pH VBG pCO2 VBG pO2 VBG HCO3 VBG Total CO2 VBG O2 Saturation VBG Base Excess Sodium 141 Potassium 3.9 Chloride 103 Carbon Dioxide 30.1 Anion Gap 7.9 BUN 25 H Creatinine 0.8 Est GFR (CKD-EPI 2020) 87.27 Glucose 89 Calcium 9.0 Magnesium 2.1 Total Bilirubin 0.8 AST 20 ALT 31 Alkaline Phosphatase 103 Total Protein 7.2 Albumin 4.1 Procalcitonin TSH 3.38 Urine Color Urine Clarity Urine pH Ur Specific [place] Urine Protein Urine Ketones Urine Blood Urine Nitrite Urine Bilirubin Urine Urobilinogen Ur Leukocyte Esterase Urine Glucose COVID-19 Source SARS-CoV-2 (PCR) 01/17/23 01/17/23 01/17/23 10:40 10:57 11:19 WBC RBC Hgb Hct MCV MCH MCHC RDW Plt Count MPV Immature Gran % Neutrophils % Lymphocytes % Monocytes % Eosinophils % Basophils % Nucleated RBC % Absolute Neutrophils Absolute Lymphocytes Absolute Monocytes Absolute Eosinophils Absolute Basophils PT INR APTT VBG pH VBG pCO2 VBG pO2 VBG HCO3 VBG Total CO2 VBG O2 Saturation VBG Base Excess Sodium Potassium Chloride Carbon Dioxide Anion Gap BUN Creatinine Est GFR (CKD-EPI 2020) Glucose Calcium Magnesium Total Bilirubin AST ALT Alkaline Phosphatase Total Protein Albumin Procalcitonin < 0.1 TSH Urine Color Yellow Urine Clarity Clear Urine pH 7.0 Ur Specific [place] 1.015 Urine Protein Negative Urine Ketones Negative Urine Blood Negative Urine Nitrite Negative Urine Bilirubin Negative Urine Urobilinogen 0.2 Ur Leukocyte Esterase Negative Urine Glucose Negative COVID-19 Source Nasal/Nares SARS-CoV-2 (PCR) Negative 01/17/23 13:25 WBC RBC Hgb Hct MCV MCH MCHC RDW Plt Count MPV Immature Gran % Neutrophils % Lymphocytes % Monocytes % Eosinophils % Basophils % Nucleated RBC % Absolute Neutrophils Absolute Lymphocytes Absolute Monocytes Absolute Eosinophils Absolute Basophils PT INR APTT VBG pH 7.36 VBG pCO2 50 VBG pO2 40 VBG HCO3 29 H VBG Total CO2 26 VBG O2 Saturation 75 VBG Base Excess 3 Sodium Potassium Chloride Carbon Dioxide Anion Gap BUN Creatinine Est GFR (CKD-EPI 2020) Glucose Calcium Magnesium Total Bilirubin AST ALT Alkaline Phosphatase Total Protein Albumin Procalcitonin TSH Urine Color Urine Clarity Urine pH Ur Specific [place] Urine Protein Urine Ketones Urine Blood Urine Nitrite Urine Bilirubin Urine Urobilinogen Ur Leukocyte Esterase Urine Glucose COVID-19 Source SARS-CoV-2 (PCR) Time Spent with Patient Time Spent with Patient: 35-49 minutes Time was spent: preparing to see the patient(eg.review tests), obtaining and/or reviewing separately otained hiistory, ordering medications,tests, procedures and counseling the patient
[2023-01-18] MEDS: diazePAM 2 MG TAB PO (03:56)
[2023-01-18] MEDS: PIPERACILLIN/TAZO 3.375 GM in Normal Saline 50 ML IVPB ×3 (03:56→20:32)
[2023-01-18] MEDS: DOXYCYCLINE 100 MG in Normal Saline 100 ML IVPB ×2 (05:00→17:34)
[2023-01-18 07:18] LABS: Abs Immature Grans 0.01 10^3/uL (0.0-0.06); Absolute Basophil Count 0.06 10^3/uL (0.0-0.2); Absolute Eosinophil Count 0.25 10^3/uL (0.0-0.7); Absolute Lymphocyte Count 1.43 10^3/uL (1.2-3.4); Absolute Monocyte Count 0.51 10^3/uL (0.1-0.8); Absolute Neutrophil Count 2.82 10^3/uL (1.2-6.7); Basophils % 1.2; Eosinophils % 4.9; HCT 33.5 % (40.0-50.0); HGB 11.9 g/dL (13.5-17.5); Immature Grans % 0.2; Lymphocytes % 28.1; MCH 32.7 pg (27.0-33.0); MCHC 35.5 % (32.0-36.0); MCV 92 fL (80-95); MPV 10.2 fL (8.0-11.0); Neutrophils % 55.6; Platelet Count 200 10^3/uL (130-400); RBC 3.64 10^6/uL (4.36-5.78); RDW 14.2 % (11.8-14.1); WBC 5.08 10^3/uL (4.4-10.8)
[2023-01-18 07:37] LABS: Anion Gap 10.7 mmol/L (3-11); BUN 22 mg/dL (7-18); CO2 25.3 mmol/L (21.0-32.0); CREATININE 0.9 mg/dL (0.70-1.30); Calcium 8.5 mg/dL (8.5-10.1); Chloride 103 mmol/L (98-107); Estimated GFR 84.22 (mL/min/1.73m2); Glucose 78 mg/dL (74-106); Magnesium 1.9 mg/dL (1.8-2.4); Potassium 3.6 mmol/L (3.5-5.1); Sodium 139 mmol/L (136-145)
[2023-01-18] MEDS: Finasteride 5 MG TAB PO (08:10)
[2023-01-18] MEDS: Benzonatate 200 MG CAP PO ×3 (08:10→19:25)
[2023-01-18] MEDS: Polyethylene Glycol 3350 17 GM PACKET PO (08:10)
[2023-01-18] MEDS: guaiFENesin 600 MG TABCR PO ×2 (08:10→19:25)
[2023-01-18] MEDS: Rosuvastatin 5 MG TAB PO (08:10)
[2023-01-18] MEDS: amLODIPine 5 MG TAB PO (08:11)
[2023-01-18] MEDS: Citalopram 10 MG TAB PO (08:11)
[2023-01-18] MEDS: Cholecalciferol (Vitamin D3) 1,000 UNIT TAB 1000 UNITS PO (08:11)
[2023-01-18] MEDS: Lidocaine 5% Patch 1 PATCH TP (08:11)
[2023-01-18] MEDS: Allopurinol 300 MG TAB PO (08:11)
--- NOTE | 2023-01-18 09:05 | PDOC.CMIN ---
Date of service: 01/18/23 Time of Service: 09:05 Care Management Initial Assmt Initial Assessment REASON FOR HOSPITALIZATION:: AMS/Parkinsons disease PREVIOUS FUNCTIONAL STATUS/SOCIAL/FAMILY SUPPORTS:: Landon is spending the summer with his Maira in [place] where they have a summer camp. Jose Alberto plan to move to [place] in January to live with one of their sons. They are from [place] and most of their family is there. In addition to the son they will be living with, they have a daughter there and 4 of their 6 grandchildren. They have another son and 2 grandchildren in [place]. Landon worked in [employer] for 44 years in [facility] and [place], [place]. 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 He also worked for the [employer]. Landon has Parkinson's Disease and it is affecting his mobility at this time. CURRENT FUNCTIONAL STATUS:: Landon was sitting up in bed when CM met with him. He was very pleasant and revealed a good sense of humor when interacting with his family. Landon's Maira and their niece were present at the time. They had many questions about insurance coverage and requirements for admission to a SNF rehab. CM explained Medicare rules and variations in plans. They have an [employer] Medicare Advantage Plan which is a Medicare replacement plan. Their plan will likely require a prior authorization to transfer to a SNF. After discussion, the family requested that CM send a referral to [facility] in case Landon does need rehab before he can travel. They also requested that a PT evaluation be done. CM sent the referral and the provider has ordered the PT evaluation which will be done first thing tomorrow morning. ADVANCE DIRECTIVES:: none on file Has patient been provided with info about the portal/API?: Yes Did the patient sign up for the portal?: No CODE STATUS:: Full Code INSURANCE COVERAGE / FINANCIAL ISSUES:: A[employer]na Medicare Replacement CURRENT HOME/COMMUNITY SERVICES/EQUIPMENT:: uses a walker PRIMARY CARE PHYSICIAN:: Rula Danielle POTENTIAL DISCHARGE NEEDS:: follow up with neurology, PCP and plan of care PATIENT/FAMILY EDUCATION NEEDS:: Review of discharge instructions, limitations, activity, follow up plan, discuss Ask Me Three TRANSPORTATION:: via private vehicle with PLAN:: It is possible that Landon will need to go to a SNF for short term rehab prior to discharging back to the community. He and his family plan to travel to [place] next month to live with one of their sons. He will follow up with his community providers and plan of care and transport with family. CM will follow and continue to assess for discharge needs. PFSH All Active Problems (Updated 01/18/23 @ 03:46 by Levi Tanner) Neck pain (Acute) Full code status (Acute) Discharge planning issues (Acute) DVT prophylaxis (Acute) Pneumonia (Acute) Altered mental status (Acute) Abdominal cramping (Acute) Parkinsonian festinating gait determined by examination (Acute) Osteoarthritis of right knee (Acute) Chronic knee pain (Acute) Medical History (Updated 01/18/23 @ 03:46 by Levi Tanner) Gout HTN (hypertension) Parkinsons disease Surgical History History of repair of retinal defect by laser photocoagulation Social History Smoking/Tobacco Use Status: Former Tobacco Use Quit Date: 08/20/71 Tobacco: How many years used: 16 Smoking risk assessment performed?: Yes Alcohol Intake: current Alcohol Intake frequency: holidays/special occasions only Drug use: Never Substance use type: does not use Housing: condominium Do you feel safe at home: Yes Do you feel safe in your relationship?: Yes
[2023-01-18 09:59] VITALS: BP 120/56; PULSE 59; RESP 18; TEMP 34.4; O2SAT 97
[2023-01-18 11:23] VITALS: BP 119/67; PULSE 59; RESP 18; TEMP 34.2; O2SAT 98
[2023-01-18] MEDS: Normal Saline Flush 10 ML SYR IVP (11:56)
[2023-01-18] MEDS: Carbidopa 25/Levodopa 100 TAB PO (14:07)
[2023-01-18 15:14] VITALS: BP 124/67; PULSE 72; RESP 18; TEMP 36.4; O2SAT 97
[2023-01-18] MEDS: Enoxaparin 40 MG/0.4 ML SYR SC (17:34)
--- NOTE | 2023-01-18 18:29 | PGE_ITS ---
Date of Service Date of service: 01/18/23 Time of Service: 18:29 Assessment and Plan Assessment and plan (1) Neck pain: Status: Acute Assessment and plan: see neurology consult MRI pending. Try heating pad, APAP prn Low dose diazepam for muscle relaxant as a trial (2) Altered mental status: Status: Acute Assessment and plan: at baseline, has some short term memory issues. (3) Pneumonia: Status: Acute Assessment and plan: continue pip/tazo and doxycycline day 2. Discussed with DR Lincoln Subjective Subjective Patient reports: no new complaints, feels better, tolerating liquids well, tolerating a regular diet and afebrile; denies shortness of breath Exam Const General: cooperative, healthy appearing, comfortable and no acute distress Orientation: alert and awake HENKY Head: normal to inspection, normocephalic and atraumatic Eyes General: appearance normal, both eyes and all related structures Conjunctivae: conjunctivae normal Neck Neck: normal visual inspection and full ROM Resp Effort & Inspection: normal respiratory effort and able to speak in complete sentences Cardio Rate: regular rate Rhythm: regular rhythm Skin General skin exam: no rashes or lesions noted Neuro General: patient alert, patient awake, moves all extremities and no focal motor deficits Cognition: normal cognition Speech: speech normal Extrem General: full ROM Other: Right knee, without erythema or warmth. There is diffuse mild anterior swelling . Full range of motion. No laxity. No discomfort with anterior draw, varus or valgus stress. Normal capillary refill. Normal dorsalis pedal pulse. Calf without swelling, warmth, erythema, discomfort. Negative Homans' sign Psych Appearance: grossly normal Mental Status: mental status grossly normal Objective Last Vital Signs Temp 36.4 C L 01/18/23 15:14 Pulse 72 01/18/23 15:14 Resp 18 01/18/23 15:14 BP 124/67 01/18/23 15:14 Pulse Ox 97 01/18/23 15:14 Laboratory Results - last 24 hr 01/18/23 01/18/23 06:35 06:35 WBC 5.08 RBC 3.64 L Hgb 11.9 L Hct 33.5 L MCV 92 MCH 32.7 MCHC 35.5 RDW 14.2 H Plt Count 200 MPV 10.2 Immature Gran % 0.2 Neutrophils % 55.6 Lymphocytes % 28.1 Monocytes % 10.0 Eosinophils % 4.9 Basophils % 1.2 Nucleated RBC % 0.0 Absolute Neutrophils 2.82 Absolute Lymphocytes 1.43 Absolute Monocytes 0.51 Absolute Eosinophils 0.25 Absolute Basophils 0.06 Sodium 139 Potassium 3.6 Chloride 103 Carbon Dioxide 25.3 Anion Gap 10.7 BUN 22 H Creatinine 0.9 Est GFR (CKD-EPI 2020) 84.22 Glucose 78 Calcium 8.5 Magnesium 1.9 Time Spent with Patient Time Spent with Patient: 25-34 minutes Time was spent: preparing to see the patient(eg.review tests), ordering medications,tests, procedures and counseling the patient
[2023-01-18 19:22] VITALS: BP 130/67; PULSE 65; RESP 18; TEMP 37.1; O2SAT 95
[2023-01-18] MEDS: Tamsulosin 0.4 MG CAPCR PO (19:25)
[2023-01-18] MEDS: Lidocaine Patch Removal 1 EACH TP (19:26)
[2023-01-18] MEDS: Patient's Own Medication 1 EACH MISC OP (20:29)
[2023-01-18 23:39] LABS: Legionella Ag Detection Urine Negative (Negative)
[2023-01-19] VITALS: BP 125/85; PULSE 71; RESP 15; TEMP 37.1; O2SAT 95
[2023-01-19] MEDS: PIPERACILLIN/TAZO 3.375 GM in Normal Saline 50 ML IVPB ×3 (03:42→19:50)
[2023-01-19 04:56] VITALS: BP 139/75; PULSE 69; RESP 16; TEMP 36.7; O2SAT 97
[2023-01-19] MEDS: DOXYCYCLINE 100 MG in Normal Saline 100 ML IVPB ×2 (05:27→17:17)
[2023-01-19 06:51] LABS: Abs Immature Grans 0.01 10^3/uL (0.0-0.06); Absolute Basophil Count 0.07 10^3/uL (0.0-0.2); Absolute Eosinophil Count 0.27 10^3/uL (0.0-0.7); Absolute Monocyte Count 0.59 10^3/uL (0.1-0.8); Absolute Neutrophil Count 3.18 10^3/uL (1.2-6.7); Basophils % 1.3; Eosinophils % 5.1; Immature Grans % 0.2; Lymphocytes % 22.6; MCH 32.5 pg (27.0-33.0); MCHC 35.3 % (32.0-36.0); MCV 92 fL (80-95); MPV 9.6 fL (8.0-11.0); Monocytes % 11.1; Neutrophils % 59.7; Platelet Count 197 10^3/uL (130-400); RBC 3.69 10^6/uL (4.36-5.78); RDW 14.3 % (11.8-14.1); RDW-SD 48.3 fL; WBC 5.32 10^3/uL (4.4-10.8)
[2023-01-19 07:15] LABS: Anion Gap 8.5 mmol/L (3-11); BUN 21 mg/dL (7-18); CO2 26.5 mmol/L (21.0-32.0); CREATININE 0.9 mg/dL (0.70-1.30); Calcium 8.5 mg/dL (8.5-10.1); Chloride 104 mmol/L (98-107); Estimated GFR 84.22 (mL/min/1.73m2); Glucose 83 mg/dL (74-106); Magnesium 1.9 mg/dL (1.8-2.4); Potassium 3.8 mmol/L (3.5-5.1); Sodium 139 mmol/L (136-145)
[2023-01-19 07:40] LABS: Vitamin B12 284 pg/mL (193-986)
[2023-01-19] MEDS: Lidocaine 5% Patch 1 PATCH TP (08:10)
[2023-01-19] MEDS: guaiFENesin 600 MG TABCR PO ×2 (08:11→19:50)
[2023-01-19] MEDS: Cholecalciferol (Vitamin D3) 1,000 UNIT TAB 1000 UNITS PO (08:11)
[2023-01-19] MEDS: amLODIPine 5 MG TAB PO (08:12)
[2023-01-19] MEDS: Citalopram 10 MG TAB PO (08:12)
[2023-01-19] MEDS: Finasteride 5 MG TAB PO (08:12)
[2023-01-19] MEDS: Rosuvastatin 5 MG TAB PO (08:12)
[2023-01-19] MEDS: Benzonatate 200 MG CAP PO ×3 (08:12→19:50)
[2023-01-19] MEDS: Allopurinol 300 MG TAB PO (08:12)
[2023-01-19] MEDS: Patient's Own Medication 1 EACH MISC OP ×2 (08:13→19:50)
--- NOTE | 2023-01-19 08:23 | IN_ITS ---
PT Notes Visit Reasons: Pneumonia Inpatient Physical Therapy Evaluation Date: 01/19/23 Referring Doctor: Belén Damon NP PT Orders: PT CONSULT: limited ability to ambulate Precautions: fall, standard Patient Profile/Admitting Diagnosis: Patient admitted from ER after demonstrati ng altered mental status at home. Admitted for medical management of pneumonia. PT consult requested for evaluation and treatment of mobility impairments. 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 Curently at his [place] on [address] [facility], where he and his spend the summer. Plan to head to [place] in 2 weeks to stay with their son for several weeks, before wintering in [place]. States that he typically ambulates with either a FWW or 4WW, depending on the terrain. He generally has his present when he walks, stating he gets nervous walking on his own. Equipment Owned/DME: FWW Subjective: Landon states that he is feeling good this morning. He has 6/10 pain in neck and low back, which bother him chronically. Objective: General Observation: Resting in bed with IV in LUE. No additional lines. Mental Status: Alert. Able to provide cohesive history, although easily distracted. Perseverates on details of plan at times. Pain: 6/10 ROM: Right Upper Extremity: WFL Left Upper Extremity: WFL Right Lower Extremity: WFL Left Lower Extremity: WFL Cervical motion restricted through all planes, although no significant pain reproduction by patient report. Strength: Right Upper Extremity: Shoulder flexion 4/5. Biceps 5/5. Triceps 5/5. Spanish Language Lecturer is strong and equal. Left Upper Extremity: Shoulder flexion 4/5. Biceps 5/5. Triceps 5/5. Spanish Language Lecturer is strong and equal. Right Lower Extremity: Hip flexion 5/5. Quads 5/5. HS 5/5. Ankle DF 5/5 Left Lower Extremity: Hip flexion 5/5. Quads 5/5. HS 5/5. Ankle DF 5/5 Bed Mobility/Transfers: supine-sit: supervision sit-stand: SBA stand-sit: SBA Gait: Ambuates 30' with FWW, CGA. Requires max cues for safety, with poor awareness of lines despite cues. Demonstrates slow aicha, although with good foot clearance. Relies heavily on UE support to FWW. Balance: Static Sitting: good Dynamic Sitting: good Static Standing: fair Dynamic Standing: fair 4-Position Balance Test: 0/4 Small OTIS: unable Partial Tandem: unable Full Tandem: unable Single Leg Stance: unable Special Tests: Mobility Limitations Standardized Measure [facility] [place]-P[facility] 6 clicks Basic Mobility Inpatient Short Form: Raw Score: 19 Standardized Score: 42% impairment Informed Consent/Education: Patient instructed in purpose of PT consult and plan of care. Assessment: Patient is an 82 year old male referred to physical therapy services for evaluationand treatment of mobility impairments. Patient presents with acute on chronic mobility issues, with chronic pain and underlying Parkinson's Disease. He was seen this morning prior to Sinemet dosing, and did not demonstrate any significant freezing of gait or bradykinesia. Does have significant balance impairment and limited safety awareness contributing to mobility impairment and increased risk for falls. He requires skilled PT intervention to maximize safety and mobility, and recommend resumption of outpatient PT upon return home to address chronic issues. He has apparently been complaining of neck pain, although only discusses with me today on direct questioning. His ROM is restricted in all planes, but non-irritable, and he doesn't demonstrate any UE paresthesias or weakness. MRI on this admission indicates degenerative changes with cervical stenosis. He currently demonstrates the following impairment level findings: 1. decreased balance 2. gait impairments 3. h/o falls Impairments are contributing to the following functional limitations: 1. high fall risk 2. decreased balance 3. decreased safety awareness Patient is assessed as Moderate 13099 complexity based on the following: History: as above Examination: functional limitations as above Presentation: evolving Decision Making: moderate Goals: Goals X1 week 1. Supine-Sit : supervision 2. Sit-Supine : supervision 3. Sit-Stand : supervision 4. Stand-Sit : supervision 5. Bed-Chair : supervision with FWW 6. Chair-Bed : supervision with FWW 7. Gait : supervision with FWW x 50' Plan of Care/Treatment Plan: 1-2x/day, 7 days/week x 1 week. Plan of care has been reviewed with the WIRE LOOP MACHINE OPERATOR providing the service under Physical Therapy direction. Initiate Physical Therapy intervention for strengthening, bed mobility, transfers, gait, stairs, balance training, use of assistive device. DISCHARGE RECOMMENDATIONS: Home with outpatient PT TREATMENT CODE/TIME: [id number] ([id number]) Amena Mota, PT, DPT [facility]
[2023-01-19 08:28] VITALS: BP 186/82; PULSE 62; RESP 18; TEMP 35.9; O2SAT 99
[2023-01-19] MEDS: Cyanocobalamin 500 MCG TAB 1000 MCG PO (09:22)
[2023-01-19] MEDS: Cyanocobalamin 1000 MCG/ML VIAL IM (09:22)
[2023-01-19 11:33] VITALS: BP 148/79; PULSE 54; RESP 18; TEMP 35.7; O2SAT 100
--- NOTE | 2023-01-19 13:12 | SP_ITS ---
Date of service: 01/19/23 Time of Service: 13:12 Subjective Clinical (Bedside) Swallow Evaluation Speech Language Pathology Patient referred for Clinical Swallow Evaluation from Dr Stephen given suspected aspiration in setting of Parkinson's Disease. Precautions: Fall, Contact, Full Code SUBJECTIVE: Patient received alert/awake, agreeable to evaluation, able to communicate wants/needs effectively; able to demonstrate comprehension of recommendations for safe p.o. intake upon discharge once deemed medically stable.? Pleasant, conversant, appreciative of care received here. They have really good food here. Denies hx dysphagia sx or speech changes. HPI: Pt is an 82 year old m with Parkinson's admitted with AMS and pneumonia (STEPHEN). Predisposing dysphagia risk factors: Parkinson's Disease Clinical signs of possible chronic dysphagia: PNA ?aspiration Precipitating dysphagia risk factors / triggering event: AMS ?----- IMPRESSIONS & PLAN: Appreciate minimal aspiration risk on clinical swallow evaluation. Speech is robust and WFL. Recommend f/u with outpatient ACCOUNTANT SYSTEMS as needed/per neurology recommendations in the future. Provided education regarding impact of PD on speech & swallow function including therapeutic options should he see decline. Further ACCOUNTANT SYSTEMS services: No further inpt services. Recommend to initiate with outpatient ACCOUNTANT SYSTEMS per neurology discretion if further progression of speech/swallow symptoms. ? Diet Texture Modification(s): IDDSI Level(s) SOLIDS 7-Regular Solids LIQUIDS 0-Thin Liquids Medication Intake: Whole with 0-Thin Liquids RISK MANAGEMENT: HOB upright as tolerated; upright for all PO intake. Encourage physical mobility as tolerated. Oral hygiene BID/2x per day, before/after PO intake ? Level of Assistance/Supervision: Independent PO intake only when awake/alert? Strategies/Adaptations/Assistive Equipment: Reduce auditory and/or visual distractions when eating Small sips and bites when eating PFSH All Active Problems?(Updated 01/17/23 @ 19:18 by Sasha Blue NP) Full code status (Acute) Discharge planning issues (Acute) DVT prophylaxis (Acute) Pneumonia (Acute) Altered mental status (Acute) Abdominal cramping (Acute) Parkinsonian festinating gait determined by examination (Acute) Osteoarthritis of right knee (Acute) Chronic knee pain (Acute) Medical History?(Updated 01/17/23 @ 19:18 by Sasha Blue NP) Gout HTN (hypertension) Parkinsons disease Surgical History? History of repair of retinal defect by laser photocoagulation OBJECTIVE: Respiratory: room air with good tolerance Language: Grossly WFL Hearing: Bilat hearing aids Mental Status: Alert and Oriented person, place, time, event Speech: WFL or mildly slow, good articulation & prosody Oral Motor Exam: ? Dentition ? Natural dentition ? Good condition ? Oral Mucosa ? Moist ? Good oral care ? CN V - Trigeminal ? Jaw Movement ? WFL ? CN VII ? Labial/Facial ? WFL ? CN IX ? Palate ? WFL ? CN X ? Laryngeal ? Vocal quality ? WFL ? Volitional cough ? Sharp & strong ? CN XII ? Lingual ? WFL ? Volitional Swallow ? Robust laryngeal elevation ? Jayde Swallow Protocol Results ? PASS: Complete/uninterrupted without s/sx aspiration ? Food items tested: ?? IDDSI 0: water IDDSI 7: sandwich Pill/tablet: with thin liquid Oral phase: WFL Pharyngeal phase: WFL Provided education to: Patient Topics Addressed: anatomy/physiology of swallowing mechanism, overt s/sx to monitor for re: potential aspiration of food / liquids, recommendations for improved oral care, relationship between respiratory function changes and deglutition, impact of PD on swallow functiond, indications to seek ACCOUNTANT SYSTEMS referral in future Outcome: Verbalized/demonstrated understanding Time spent: 30 min Coding Diagnoses CPT Codes EVALUATE SWALLOWING FUNCTION - [id number] ([id number])
--- NOTE | 2023-01-19 15:14 | PT.INTREAT ---
PT Notes Visit Reasons: Pneumonia Inpatient Physical Therapy Treatment Note [facility] Date: 01/19/23 SUBJECTIVE: Landon states that he is willing to go for a walk. OBJECTIVE: []? BED MOBILITY/TRANSFERS? pt seated in recliner this pm? Sit-stand: CGA? Stand-sit: CGA? Provided skilled cues and instruction on performance and technique throughout. ? GAIT? Assistive Device: FWW? Weight bearing: full Assist: CGA? Distance:? approx 250'? Deviation: cues for proper steering of walker. ? ASSESSMENT:? tolerated session well. Fatigue noted at end of ambulation. Noted first few steps he was listing to the right, but able to straighten out after a few steps. PLAN: will continue to progress following PT POC, improving his functional mobility TREATMENT CODE/TIME: 2-220. 20 min
[2023-01-19 15:41] LABS: C Diff PCR Negative (Negative)
--- NOTE | 2023-01-19 15:44 | PT.INTREAT ---
Date of service: 01/19/23 Time of Service: 14:25 PT Notes Visit Reasons: Pneumonia Inpatient Physical Therapy Treatment Note [facility] Date: 01/19/2023 PRECAUTIONS: SUBJECTIVE: [] OBJECTIVE: []? PAIN: [] VITALS: ? Pre-Treatment: [] ? Post-Treatment: []? Therapeutic Activities ([id number][]): Direct one-on-one instruction in dynamic activities to improve functional performance. ? BED MOBILITY/TRANSFERS? Rolling L/R: [] Supine-sit: []? Sit-supine: [] ? Sit-stand: []? Stand-sit: [] ? Bed-Chair: [] ? Chair-bed: [] Provided skilled cues and instruction on performance and technique throughout. Gait Training ([id number][]): Direct one-on-one instruction and skilled instruction in: [] employing an assistive device [] modified weight-bearing status [] movement sequencing [] turning and movement with proper form [] Provided verbal cues for equipment management and technique [] Provided instruction in gait pattern [] Patient education regarding pacing and breathing techniques to maximize activity tolerance? GAIT? Assistive Device: []? Weight bearing: [] Assist: [] ? Distance:? [] ? Deviation: [] ? STAIRS:[] ? Therapeutic Exercises ([id number][]): Direct one-on-one instruction in therapeutic exercises to develop strength, endurance, range of motion and flexibility. ? Exercises [] ?Ambulation ? Assistive Device: []? Weight bearing: [] Assist: [] ? Distance:? [] ? Deviation: [] ? Provided skilled instruction in proper exercise performance Provided skilled manual cues to facilitate proper muscle recruitment and/or form: [] Neuromuscular Re-education ([id number][]): Activities that facilitate re-education of movement balance, posture, coordination, and proprioception or kinesthetic sense, requiring skilled tactile and verbal cues ? Exercises/techniques: [] ASSESSMENT:? [] PLAN: [] TREATMENT CODE/TIME: []
[2023-01-19] MEDS: Carbidopa 25/Levodopa 100 TAB PO ×3 (15:59→21:46)
--- NOTE | 2023-01-19 17:03 | CMPROGNOTE_ITS ---
Date of service: 01/19/23 Time of Service: 17:03 Care Management Progress Note Progress Note Text Progress Note Text: S/O:Landon was sitting up in a chair when CM met with him. He was pleasant and engaged easily with CM. Landon's Maira contacted CM this morning re: short term rehab. CM explained that although a referral was sent, no response was received. Landon has a medicare replacement plan and a prior authorization will likely be needed. When PT completed the evaluation of Landon, their recommendation was for outpatient PT. That may be a barrier to acceptance at a rehab facility as he may not have an identified skilled need.. Landon has been working with PT and is doing well. He was able to ambulate 250 feet with his walker with only CGA. Maira continues to be concerned about Landon's ability to climb the few stairs required to enter the camper. CM has requested that PT work on stairs with Landon, preferably with his present. If stairs becomes the only barrier to discharge, CM can arrange for a lift assist. A:Landon is an 82 year old man admitted on 01/17/23 with pneumonia P:t is possible that? Landon will need to go to a SNF for short term rehab prior to discharging back to the community. He and his family plan to travel to [facility] next month to live with one of their sons. He will follow up with his community providers and plan of care and transport with family. CM will follow and continue to assess for discharge needs.
[2023-01-19] MEDS: Enoxaparin 40 MG/0.4 ML SYR SC (17:17)
[2023-01-19 19:19] VITALS: BP 150/74; PULSE 63; RESP 16; TEMP 36.7; O2SAT 99
[2023-01-19] MEDS: Tamsulosin 0.4 MG CAPCR PO (19:51)
--- NOTE | 2023-01-19 21:49 | W.PM.PROGNOT ---
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 The patient is not reporting pain to me today. C6-7 stenosis does not explain his symptoms of numbness in his B hands and feet. Continue prn tylenol, lidocaine patches. (2) Altered mental status: Status: Resolved Assessment and plan: Suspect that this is related to new medications at home vs pneumonia. (3) Pneumonia: Status: Acute Assessment and plan: Continue zosyn + doxycycline day 3. evaluated by speech therapy: no signs of aspiration. Continue regular diet. (4) B12 deficiency: Status: Acute Assessment and plan: Replete (5) Lower urinary tract symptoms (LUTS): Status: Acute Assessment and plan: Check bladder scans, UA/C&S (6) Parkinsons disease: Assessment and plan: Continue sinemet (7) DVT prophylaxis: Status: Acute Assessment and plan: Sc enoxaparin (8) Discharge planning issues: Status: Acute Assessment and plan: Full code is interested in SNF placement Subjective Subjective Interval history since last seen: Mr Martínez states he is feeling better. He is coughing. He reports difficulty emptying his bladder and suprapubic discomfort from that. He reports diarrhea. The nurses document only formed stool. Denies dizziness, CP, n/v. 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 He does have B12 deficiency, which could. If he and his so choose, they could follow up with neurosurgery as outpatient. Exam Narrative Exam Narrative: General: Pleasant forgetful elderly male who is A&Ox3, but loses his train of thought easily HEENT: EOMI, MMM, keeps his right eye closed Heart: RRR, no m/r/g Lungs: Diminished breath sounds B Abdomen: soft, nontender, nondistended Extremities: no edema BLEs. Objective Last Vital Signs Temp 36.7 C 01/19/23 19:19 Pulse 63 01/19/23 19:19 Resp 16 01/19/23 19:19 BP 150/74 H 01/19/23 19:19 Pulse Ox 99 01/19/23 19:19 Laboratory Results - last 24 hr 01/17/23 01/19/23 01/19/23 20:30 06:17 06:17 WBC 5.32 RBC 3.69 L Hgb 12.0 L Hct 34.0 L MCV 92 MCH 32.5 MCHC 35.3 RDW 14.3 H Plt Count 197 MPV 9.6 Immature Gran % 0.2 Neutrophils % 59.7 Lymphocytes % 22.6 Monocytes % 11.1 Eosinophils % 5.1 Basophils % 1.3 Nucleated RBC % 0.0 Absolute Neutrophils 3.18 Absolute Lymphocytes 1.20 Absolute Monocytes 0.59 Absolute Eosinophils 0.27 Absolute Basophils 0.07 Sodium 139 Potassium 3.8 Chloride 104 Carbon Dioxide 26.5 Anion Gap 8.5 BUN 21 H Creatinine 0.9 Est GFR (CKD-EPI 2020) 84.22 Glucose 83 Calcium 8.5 Magnesium 1.9 Vitamin B12 Stl C.difficile Tox PCR Urine Legionella Ag Negative 01/19/23 01/19/23 06:17 14:05 WBC RBC Hgb Hct MCV MCH MCHC RDW Plt Count MPV Immature Gran % Neutrophils % Lymphocytes % Monocytes % Eosinophils % Basophils % Nucleated RBC % Absolute Neutrophils Absolute Lymphocytes Absolute Monocytes Absolute Eosinophils Absolute Basophils Sodium Potassium Chloride Carbon Dioxide Anion Gap BUN Creatinine Est GFR (CKD-EPI 2020) Glucose Calcium Magnesium Vitamin B12 284 Stl C.difficile Tox PCR Negative Urine Legionella Ag Time Spent with Patient Time Spent with Patient: 25-34 minutes Time was spent: preparing to see the patient(eg.review tests), obtaining and/or reviewing separately otained hiistory, ordering medications,tests, procedures, referring, communicating with other health healthcare corporate account director, indepentently interpreting results, counseling the patient and care coordination
[2023-01-19] MEDS: Lidocaine Patch Removal 1 EACH TP (21:57)
[2023-01-19 23:08] LABS: Streptococcus Pneumoniae Ag, U Negative (Negative)
[2023-01-20] VITALS (8 sets, daily range): BP systolic 133–149; BP diastolic 64–96; PULSE 57–82; RESP 15–18; TEMP 36.2–37; O2SAT 94–100
--- NOTE | 2023-01-20 | DI.CT_ITS ---
Exam(s) CT ABDOMEN PELVIS W EXAM: CT ABDOMEN PELVIS W CLINICAL HISTORY: Pain TECHNIQUE: Imaging Protocol: Axial computed tomography images with coronal and sagittal reformatted images were created and reviewed CONTRAST MATERIAL: Intravenous: Omnipaque 350 Contrast volume:100 mL Oral: No COMPARISON: CT CT ABDOMEN PELVIS W from 01/17/2023 FINDINGS: ABDOMEN: Lung Bases: Mild cardiomegaly and pulmonary fibrosis. Liver: Normal density. No measurable mass. Portal, Superior Mesenteric, and Splenic Veins: Unremarkable. Gallbladder and Biliary Tract: No radiodense calculus or dilation. Pancreas: Normal density, no abnormal calcifications or inflammatory process. Spleen: Normal. Adrenals: No masses seen. Kidneys: Normal size, contour and axis. No radiodense stones or obstructive uropathy. There are stabl e bilateral renal cysts. No follow-up is recommended. Abdominal Aorta: Abdominal portion non-dilated. Atherosclerosis. Bowel: No obstruction or bowel wall thickening. Appendix is unremarkable. Peritoneal Cavity: There is a small amount of free fluid in the pelvis. No free air.There findings o f a prior right inguinal hernia repair. Lymph Nodes: Within normal limits. Bones: Within normal limits for the patient's age. Soft Tissues: There is a small fat containing umbilical hernia. PELVIS: Bladder: Symmetric distention, no gross wall thickening. Reproductive Organs: The prostate gland is enlarged. Lymph Nodes: Within normal limits. Bones: Within normal limits for the patient's age. IMPRESSION: 1. No acute abdominal or pelvic process. 2. No findings to suggest bowel obstruction. RADIATION DOSE DELIVERED: 771.53mGy.cm Total DLP DATA REPOSITORY: All CT scans at this facility are submitted to the National Radiology Data Registry (NRDR) Dose Index Registry (DIR) with the [employer] (ACR). RADIATION OPTIMIZATION: All CT scans at this facility use at least one of these dose optimization te chniques: automated exposure control; mA and/or kV adjustment per patient size (includes targeted exa ms where dose is matched to clinical indication); or iterative reconstruction.
[2023-01-20 02:26] LABS: Bilirubin Negative (Negative); Blood Negative (Negative); Clarity Clear (Clear); Glucose Negative (Negative); Ketones Trace mg/dL (Negative); Leukocyte Esterase Negative (Negative); Nitrite Negative (Negative); Urobilinogen 0.2 mg/dL (Up to 0.2)
[2023-01-20] MEDS: PIPERACILLIN/TAZO 3.375 GM in Normal Saline 50 ML IVPB ×3 (03:30→18:41)
[2023-01-20] MEDS: DOXYCYCLINE 100 MG in Normal Saline 100 ML IVPB ×2 (06:44→17:24)
[2023-01-20 07:57] LABS: Abs Immature Grans 0.01 10^3/uL (0.0-0.06); Absolute Basophil Count 0.05 10^3/uL (0.0-0.2); Absolute Eosinophil Count 0.27 10^3/uL (0.0-0.7); Absolute Lymphocyte Count 1.28 10^3/uL (1.2-3.4); Absolute Monocyte Count 0.57 10^3/uL (0.1-0.8); Absolute Neutrophil Count 2.45 10^3/uL (1.2-6.7); Basophils % 1.1; Eosinophils % 5.8; HCT 34.7 % (40.0-50.0); HGB 12.3 g/dL (13.5-17.5); Immature Grans % 0.2; Lymphocytes % 27.6; MCH 32.7 pg (27.0-33.0); MCHC 35.4 % (32.0-36.0); MCV 92 fL (80-95); MPV 9.6 fL (8.0-11.0); Monocytes % 12.3; Platelet Count 200 10^3/uL (130-400); RBC 3.76 10^6/uL (4.36-5.78); RDW 14.3 % (11.8-14.1); RDW-SD 48.6 fL; WBC 4.63 10^3/uL (4.4-10.8)
[2023-01-20 08:13] LABS: Anion Gap 8.7 mmol/L (3-11); BUN 21 mg/dL (7-18); CO2 25.3 mmol/L (21.0-32.0); CREATININE 0.8 mg/dL (0.70-1.30); Calcium 8.5 mg/dL (8.5-10.1); Chloride 105 mmol/L (98-107); Estimated GFR 87.27 (mL/min/1.73m2); Glucose 85 mg/dL (74-106); Magnesium 1.9 mg/dL (1.8-2.4); Potassium 3.6 mmol/L (3.5-5.1); Sodium 139 mmol/L (136-145)
[2023-01-20 08:36] LABS: Procalcitonin < 0.1 ng/mL
--- NOTE | 2023-01-20 09:15 | NUR.NOTE ---
Nursing Note: At approximately 0829 on 01/20/23, this RN entered the pt.'s room to assess the pt. and to administer morning medications. Pt. stated that he was having pain in his head and his abdomen. When asked about the pain in his abdomen, pt. stated that it felt more like nausea. Charge nurse notified so that an anti-emetic medication could be ordered. When asked about the pain in his head, pt. was unable to verbalize a numerical pain level. RN offered to obtain acetaminophen (Tylenol) for the pt. to help treat their headache pain. Pt. agreed to trying the acetaminophen (Tylenol). Pt. also agreed to trying to take his morning medications, despite the nausea. At approximately 0840 on 01/20/23, once this RN had finished scanning in the pt.'s morning medications and was reviewing with the pt. what they were going to be receiving, pt. suddenly stated, No. I don't want any of those. Just let me . Please. Just let me . RN asked the pt. what was going on, and pt. stated, I just don't want to live this way anymore. I just want to go away. RN asked the pt. again if they were still willing to take their morning medications, and pt. stated, No. I don't want anything. Just let me . RN then asked the pt. if they wanted any breakfast, which pt. refused. Pt. then began complaining of having a difficult time breathing. Pt. appeared anxious and tearful. RN called for assistance with turning and repositioning and boosting the pt. up in bed. RN then assessed the pt.'s oxygen saturation, which was 99 percent. RN encouraged the pt. to take slow deep breaths, guiding the pt. through a few breaths, which appeared to help the pt. feel more calm and settled. Charge nurse notified of pt. situation. MD to be notified.
--- NOTE | 2023-01-20 10:56 | NUR.NOTE ---
Nursing Note: At approximately 1050 on 01/20/23, this RN returned a call from Chai (pt.'s - on HIPAA). RN updated pt.'s regarding pt.'s mentation, pain level and pain management techniques that were offered, refusal of head to toe assessment, plan of care, including the need to work with PT, etc. Pt.'s asking if the pt. is still going to be discharged to the rehab facility. RN informed the pt.'s that the discharge plan was unclear at this time, and that after morning meeting, the RN would have a better sense of the pt.'s discharge plan. Pt.'s stated that she would call back later on. RN then informed the pt.'s to call with any other concerns/questions.
--- NOTE | 2023-01-20 11:32 | NUR.NOTE ---
Nursing Note: RN in to check on pt. and perform incontinence care. While in the room, pt. states, I would be better off gone. I would just be a tremendous burden. Pt. appears anxious and tearful. Pt. states that he doesn't think his would ever say this to anyone (that the pt. is a burden). Pt. states, I just don't want to keep living this way. Pt. also states, I would just be of no value.
[2023-01-20] MEDS: Acetaminophen 325 MG TAB 650 MG PO (11:46)
[2023-01-20] MEDS: Carbidopa 25/Levodopa 100 TAB PO ×3 (11:46→21:24)
[2023-01-20] MEDS: Normal Saline Flush 10 ML SYR IVP ×2 (11:47→16:27)
--- NOTE | 2023-01-20 12:16 | PT.INNT ---
Date of service: 01/20/23 Time of Service: 10:55 PT Notes Visit Reasons: Pneumonia 01/20/2023 Spoke with patient's nurse Princess prior to entering Landon's room and was informed he has refused all meds. I did talk with Landon for approximately 15 minutes regarding his current situation and he informed me that he would like to speak with his doctor regarding allowing him to . Wants to know his rights with this. He states that he has not spoken to his about this yet, but knows he needs to. Is done having surgeries and does not feel good. Was not interested in performing any PT activities today, just wanted to stay in bed and rest.
[2023-01-20] MEDS: Benzonatate 200 MG CAP PO ×2 (14:23→18:38)
--- NOTE | 2023-01-20 14:34 | PGE_ITS ---
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 Continue prn tylenol, lidocaine patches. (2) Abdominal cramping: Status: Acute Assessment and plan: Was constipated - had bowel meds, some diarrhea and today now he is complaining of a stomach ache and has pain with very light palpation CT of abd done, looks better than previous and stool is less, no acute findings. (3) Altered mental status: Status: Resolved Assessment and plan: Clear today (4) Pneumonia: Status: Acute Assessment and plan: Continue zosyn + doxycycline day 4. Continue regular diet. (5) B12 deficiency: Status: Acute Assessment and plan: Replete (6) Lower urinary tract symptoms (LUTS): Status: Acute Assessment and plan: Check bladder scans, UA/C&S - pending (7) Parkinsons disease: Assessment and plan: Continue sinemet (8) DVT prophylaxis: Status: Acute Assessment and plan: Sc enoxaparin (9) Discharge planning issues: Status: Acute Assessment and plan: Full code is interested in SNF placement Discussed with Dr Lincoln Subjective Subjective Patient reports: no new complaints, tolerating liquids well, voiding w/o difficulty, diarrhea and afebrile; denies nausea, vomiting or shortness of breath Interval history since last seen: Improved although complains of new abdominal pain, diffuse, stomach ache Exam Narrative Exam Narrative: General: Pleasant, C/A oriented x 4 HEENT: EOMI, MMM Heart: RRR, no m/r/g Lungs: Bilat diminished breath sounds Abdomen: soft, diffuse tenderness, nondistended, Extremities: no edema BLEs. Objective Last Vital Signs Temp 36.8 C 01/20/23 11:44 Pulse 57 L 01/20/23 11:44 Resp 17 01/20/23 11:44 BP 134/70 01/20/23 11:44 Pulse Ox 97 01/20/23 11:44 Laboratory Results - last 24 hr 01/17/23 01/19/23 01/20/23 20:30 14:05 01:05 WBC RBC Hgb Hct MCV MCH MCHC RDW Plt Count MPV Immature Gran % Neutrophils % Lymphocytes % Monocytes % Eosinophils % Basophils % Nucleated RBC % Absolute Neutrophils Absolute Lymphocytes Absolute Monocytes Absolute Eosinophils Absolute Basophils Sodium Potassium Chloride Carbon Dioxide Anion Gap BUN Creatinine Est GFR (CKD-EPI 2020) Glucose Calcium Magnesium Procalcitonin Urine Color Yellow Urine Clarity Clear Urine pH 6.0 Ur Specific [place] 1.020 Urine Protein Negative Urine Ketones Trace H Urine Blood Negative Urine Nitrite Negative Urine Bilirubin Negative Urine Urobilinogen 0.2 Ur Leukocyte Esterase Negative Urine Glucose Negative Stl C.difficile Tox PCR Negative Ur Strep pneumoniae Ag Negative 01/20/23 01/20/23 01/20/23 07:20 07:20 07:20 WBC 4.63 RBC 3.76 L Hgb 12.3 L Hct 34.7 L MCV 92 MCH 32.7 MCHC 35.4 RDW 14.3 H Plt Count 200 MPV 9.6 Immature Gran % 0.2 Neutrophils % 53.0 Lymphocytes % 27.6 Monocytes % 12.3 Eosinophils % 5.8 Basophils % 1.1 Nucleated RBC % 0.0 Absolute Neutrophils 2.45 Absolute Lymphocytes 1.28 Absolute Monocytes 0.57 Absolute Eosinophils 0.27 Absolute Basophils 0.05 Sodium 139 Potassium 3.6 Chloride 105 Carbon Dioxide 25.3 Anion Gap 8.7 BUN 21 H Creatinine 0.8 Est GFR (CKD-EPI 2020) 87.27 Glucose 85 Calcium 8.5 Magnesium 1.9 Procalcitonin < 0.1 Urine Color Urine Clarity Urine pH Ur Specific [place] Urine Protein Urine Ketones Urine Blood Urine Nitrite Urine Bilirubin Urine Urobilinogen Ur Leukocyte Esterase Urine Glucose Stl C.difficile Tox PCR Ur Strep pneumoniae Ag Time Spent with Patient Time Spent with Patient: 35-49 minutes Time was spent: preparing to see the patient(eg.review tests), ordering medications,tests, procedures, referring, communicating with other health home health aide caregiver, indepentently interpreting results, counseling the patient and care coordination
[2023-01-20] MEDS: Omnipaque 350 MG/ML 50 ML BTL PO (16:25)
[2023-01-20] MEDS: Breeza Beverage 473 ML BTL 900 ML PO (16:26)
[2023-01-20] MEDS: Normal Saline - Diluent 50 ML VIAL IJ (16:27)
[2023-01-20] MEDS: Omnipaque 350 MG/ML 100 ML BTL IJ (16:27)
[2023-01-20] MEDS: Enoxaparin 40 MG/0.4 ML SYR SC (17:24)
--- NOTE | 2023-01-20 17:29 | DI.VRAD_ITS ---
PROCEDURE INFORMATION: Exam: CT Abdomen And Pelvis With Contrast Exam date and time: 01/20/2023 4:47 PM Age: 82 years old Clinical indication: Abdominal pain; Generalized TECHNIQUE: Imaging protocol: Computed tomography of the abdomen and pelvis with contrast. Contrast material: OMNIPAQUE 350; Contrast volume: 100 ml; Contrast route: INTRAVENOUS (IV); COMPARISON: CT ABDOMEN PELVIS W 01/17/2023 11:48 AM FINDINGS: Lungs: Fibrotic changes in the lung bases. There are thick wall tiny cysts in the right lung sulcus. Focal bronchiolectasis in the right lower lobe. No lobar consolidations. Pleural spaces: No pleural effusions. Liver: Normal. No mass. Gallbladder and bile ducts: Normal. No calcified stones. No ductal dilation. Pancreas: Normal. No ductal dilation. Spleen: Normal. No splenomegaly. Adrenal glands: Normal. No mass. Kidneys and ureters: Normal. No hydronephrosis. Stomach and bowel: The orally administered contrast has made it to the distal descending colon. Stool burden seen on the examination performed 3 days ago is no longer present. Appendix: A normal appendix is identified. Intraperitoneal space: Unremarkable. No free air. No significant fluid collection. Vasculature: The vasculature demonstrates diffuse mild atherosclerotic calcification. Lymph nodes: Unremarkable. No enlarged lymph nodes. Urinary bladder: Unremarkable as visualized. Reproductive: The prostate demonstrates moderate nonspecific enlargement. The seminal vesicles are normal. Bones/joints: The spine demonstrates moderate degenerative changes at multiple levels. Soft tissues: Unremarkable. IMPRESSION: 1. No signs of bowel obstruction. The feces seen on the exam from 3 days ago throughout the colon is longer present. 2. Findings compatible with pulmonary fibrosis. Dictated and Authenticated by: Quirino Dawson MD. Ordering:ALVARO Baez MD
[2023-01-20] MEDS: Patient's Own Medication 1 EACH MISC OP (18:38)
[2023-01-20] MEDS: guaiFENesin 600 MG TABCR PO (18:38)
[2023-01-20] MEDS: Tamsulosin 0.4 MG CAPCR PO (18:38)
[2023-01-21 00:02] VITALS: BP 123/66; PULSE 59; RESP 18; TEMP 36.6; O2SAT 96
[2023-01-21] MEDS: PIPERACILLIN/TAZO 3.375 GM in Normal Saline 50 ML IVPB ×3 (03:09→20:54)
[2023-01-21 03:46] VITALS: BP 133/76; PULSE 62; RESP 18; TEMP 36.6; O2SAT 96
[2023-01-21] MEDS: Acetaminophen 325 MG TAB 650 MG PO (04:05)
[2023-01-21] MEDS: DOXYCYCLINE 100 MG in Normal Saline 100 ML IVPB ×2 (05:06→17:29)
[2023-01-21 06:16] VITALS: BP 125/70; PULSE 65; RESP 18; TEMP 36.6; O2SAT 98
[2023-01-21 07:17] LABS: Abs Immature Grans 0.01 10^3/uL (0.0-0.06); Absolute Basophil Count 0.06 10^3/uL (0.0-0.2); Absolute Eosinophil Count 0.25 10^3/uL (0.0-0.7); Absolute Lymphocyte Count 1.37 10^3/uL (1.2-3.4); Absolute Neutrophil Count 2.73 10^3/uL (1.2-6.7); Basophils % 1.2; HCT 34.6 % (40.0-50.0); HGB 12.2 g/dL (13.5-17.5); Immature Grans % 0.2; Lymphocytes % 27.3; MCH 32.3 pg (27.0-33.0); MCHC 35.3 % (32.0-36.0); MCV 92 fL (80-95); MPV 9.2 fL (8.0-11.0); Neutrophils % 54.3; Platelet Count 195 10^3/uL (130-400); RBC 3.78 10^6/uL (4.36-5.78); RDW 14.4 % (11.8-14.1); RDW-SD 48.7 fL; WBC 5.02 10^3/uL (4.4-10.8)
[2023-01-21 07:27] LABS: Anion Gap 8.2 mmol/L (3-11); BUN 15 mg/dL (7-18); CO2 25.8 mmol/L (21.0-32.0); CREATININE 0.8 mg/dL (0.70-1.30); Calcium 8.9 mg/dL (8.5-10.1); Chloride 105 mmol/L (98-107); Estimated GFR 87.27 (mL/min/1.73m2); Glucose 80 mg/dL (74-106); Magnesium 1.8 mg/dL (1.8-2.4); Potassium 3.4 mmol/L (3.5-5.1); Sodium 139 mmol/L (136-145)
[2023-01-21] MEDS: Ondansetron 4 MG/2 ML VIAL IVP (07:50)
[2023-01-21] MEDS: Lidocaine 5% Patch 1 PATCH TP (07:51)
[2023-01-21] MEDS: Normal Saline Flush 10 ML SYR IVP ×2 (07:51→12:39)
--- NOTE | 2023-01-21 08:10 | PTTR_ITS ---
Date of service: 01/21/23 PT Notes Visit Reasons: Pneumonia Inpatient Physical Therapy Treatment Note [facility] Date: 01/21/2023 PRECAUTIONS: Fall and standard SUBJECTIVE: Doing well today. Very glad to get up and do some walking / exercises. OBJECTIVE: ? PAIN: No complaints of pain offered. Therapeutic Activities (99287b3): BED MOBILITY/TRANSFERS? Pt seated in recliner when I arrived to room? Sit-stand: CGA? Stand-sit: CGA? GAIT?Assistive Device: FWW?Weight bearing: full ?Assist: CGA?Distance:?120ft and 80ft?Deviation: Verbal cueing for proper steering of walker. ? Provided skilled?cues and instruction on performance and technique throughout. ? Stairs: Able to perform ambulation step to gait pattern up/ down 3- 4 inch steps and 2 6-inch steps with 2 hand rails and CGA of one. Neuromuscular Re-education (11881a4): Activities that facilitate re-education of movement balance, posture, coordination, and proprioception or kinesthetic sense, requiring skilled tactile and verbal cues ? Exercises/techniques: Worked on dynamic standing activities including high stepping, backward walking and side stepping at rail, with focus on large steps. Able to perform each activity for 5 ft x 3 with CGA of one. Not noted LOB with any of these tasks today. Patient was able to perform side stepping without hand rail and utilized a light corporate development manager with backward and high stepping. ASSESSMENT:? Tolerated session very well. Definitely much more positive attitude today than yesterday. PLAN: Continue with current POC with focus on improved functional mobility. Advised patient that if his would like to see him perform stairs, to let us know when she is in the hospital visiting. TREATMENT CODE/TIME: 48573h3 and [id number], 11:30 - 11:55 (25 minutes)
[2023-01-21] MEDS: Allopurinol 300 MG TAB PO (09:24)
[2023-01-21] MEDS: Patient's Own Medication 1 EACH MISC OP (09:25)
[2023-01-21] MEDS: Benzonatate 200 MG CAP PO ×3 (09:25→20:53)
[2023-01-21] MEDS: Rosuvastatin 5 MG TAB PO (09:25)
[2023-01-21] MEDS: Cholecalciferol (Vitamin D3) 1,000 UNIT TAB 1000 UNITS PO (09:25)
[2023-01-21] MEDS: Cyanocobalamin 500 MCG TAB 1000 MCG PO (09:25)
[2023-01-21] MEDS: guaiFENesin 600 MG TABCR PO ×2 (09:25→20:53)
[2023-01-21] MEDS: Citalopram 10 MG TAB PO (09:25)
[2023-01-21] MEDS: Finasteride 5 MG TAB PO (09:25)
[2023-01-21] MEDS: Carbidopa 25/Levodopa 100 TAB PO ×4 (09:59→21:06)
[2023-01-21] MEDS: amLODIPine 5 MG TAB PO (10:10)
[2023-01-21 11:23] VITALS: BP 126/74; PULSE 52; RESP 18; TEMP 36.3; O2SAT 97
[2023-01-21] MEDS: Normal Saline 500 ML 30 ML IV (12:39)
[2023-01-21 15:18] VITALS: BP 115/63; PULSE 56; RESP 18; TEMP 36.7; O2SAT 99
--- NOTE | 2023-01-21 15:48 | PGE_ITS ---
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 Continue prn tylenol, lidocaine patches. (2) Hypokalemia: Status: Acute Assessment and plan: 3.4 - repleted - follow, replete prn (3) Abdominal cramping: Status: Resolved Assessment and plan: resolved (4) Altered mental status: Status: Resolved Assessment and plan: Clear today, [facility], awake, alert, pleasant, conversant, recalls friends in [place], their names, what they did for work (5) Pneumonia: Status: Acute Assessment and plan: Continue zosyn + doxycycline day 5. Continue regular diet. (6) B12 deficiency: Status: Acute Assessment and plan: Replete (7) Lower urinary tract symptoms (LUTS): Status: Acute Assessment and plan: Check bladder scans, urine negative (8) Parkinsons disease: Assessment and plan: Continue sinemet (9) DVT prophylaxis: Status: Acute Assessment and plan: Sc enoxaparin (10) Discharge planning issues: Status: Acute Assessment and plan: Full code and patient are interested in SNF placement Discussed with Dr Lincoln Subjective Subjective Patient reports: no new complaints, pain is less, tolerating a regular diet, voiding w/o difficulty, bowel movement and afebrile; denies diarrhea, nausea or vomiting Interval history since last seen: Sitting in the recliner in the room, converant, pleasant, back to baseline. He is happy, not confused, knows where he is and why and is interested in short term rehab to get stronger. Family agrees, he is not strong enought to return home. Objective Last Vital Signs Temp 36.7 C 01/21/23 15:18 Pulse 56 L 01/21/23 15:18 Resp 18 01/21/23 15:18 BP 115/63 01/21/23 15:18 Pulse Ox 99 01/21/23 15:18 Laboratory Results - last 24 hr 01/21/23 01/21/23 07:05 07:05 WBC 5.02 RBC 3.78 L Hgb 12.2 L Hct 34.6 L MCV 92 MCH 32.3 MCHC 35.3 RDW 14.4 H Plt Count 195 MPV 9.2 Immature Gran % 0.2 Neutrophils % 54.3 Lymphocytes % 27.3 Monocytes % 12.0 Eosinophils % 5.0 Basophils % 1.2 Nucleated RBC % 0.0 Absolute Neutrophils 2.73 Absolute Lymphocytes 1.37 Absolute Monocytes 0.60 Absolute Eosinophils 0.25 Absolute Basophils 0.06 Sodium 139 Potassium 3.4 L Chloride 105 Carbon Dioxide 25.8 Anion Gap 8.2 BUN 15 Creatinine 0.8 Est GFR (CKD-EPI 2020) 87.27 Glucose 80 Calcium 8.9 Magnesium 1.8 Time Spent with Patient Time Spent with Patient: 35-49 minutes Time was spent: preparing to see the patient(eg.review tests), ordering medications,tests, procedures, referring, communicating with other health medical care evaluation specialist, indepentently interpreting results, counseling the patient and care coordination
[2023-01-21] MEDS: Potassium Chloride 10 MEQ CAPCR 40 MEQ PO (16:08)
[2023-01-21] MEDS: Enoxaparin 40 MG/0.4 ML SYR SC (17:30)
[2023-01-21 20:33] VITALS: BP 147/78; PULSE 74; RESP 20; TEMP 36.6; O2SAT 98
[2023-01-21] MEDS: Tamsulosin 0.4 MG CAPCR PO (20:53)
[2023-01-21] MEDS: Lidocaine Patch Removal 1 EACH TP (20:57)
[2023-01-22 00:46] VITALS: BP 102/65; PULSE 72; RESP 20; TEMP 36; O2SAT 96
[2023-01-22] MEDS: PIPERACILLIN/TAZO 3.375 GM in Normal Saline 50 ML IVPB ×3 (04:53→20:59)
[2023-01-22 06:00] VITALS: BP 125/64; PULSE 58; RESP 16; TEMP 36.3; O2SAT 96
[2023-01-22 07:52] LABS: Abs Immature Grans 0.01 10^3/uL (0.0-0.06); Absolute Basophil Count 0.08 10^3/uL (0.0-0.2); Absolute Eosinophil Count 0.27 10^3/uL (0.0-0.7); Absolute Lymphocyte Count 1.16 10^3/uL (1.2-3.4); Absolute Neutrophil Count 2.68 10^3/uL (1.2-6.7); Basophils % 1.7; Eosinophils % 5.6; HCT 34.9 % (40.0-50.0); Immature Grans % 0.2; Lymphocytes % 24.2; MCH 31.7 pg (27.0-33.0); MCHC 34.4 % (32.0-36.0); MCV 92 fL (80-95); MPV 9.7 fL (8.0-11.0); Monocytes % 12.5; Neutrophils % 55.8; Platelet Count 197 10^3/uL (130-400); RBC 3.78 10^6/uL (4.36-5.78); RDW 14.3 % (11.8-14.1); RDW-SD 48.5 fL
[2023-01-22] MEDS: Lidocaine 5% Patch 1 PATCH TP (08:02)
[2023-01-22] MEDS: Rosuvastatin 5 MG TAB PO (08:03)
[2023-01-22] MEDS: Finasteride 5 MG TAB PO (08:03)
[2023-01-22] MEDS: Cyanocobalamin 500 MCG TAB 1000 MCG PO (08:03)
[2023-01-22] MEDS: Allopurinol 300 MG TAB PO (08:03)
[2023-01-22] MEDS: Cholecalciferol (Vitamin D3) 1,000 UNIT TAB 1000 UNITS PO (08:03)
[2023-01-22] MEDS: Citalopram 10 MG TAB PO (08:03)
[2023-01-22] MEDS: amLODIPine 5 MG TAB PO (08:03)
[2023-01-22] MEDS: guaiFENesin 600 MG TABCR PO ×2 (08:03→20:59)
[2023-01-22] MEDS: Benzonatate 200 MG CAP PO ×3 (08:04→20:59)
[2023-01-22 08:10] LABS: Anion Gap 7.1 mmol/L (3-11); BUN 17 mg/dL (7-18); CO2 26.9 mmol/L (21.0-32.0); CREATININE 0.9 mg/dL (0.70-1.30); Calcium 8.8 mg/dL (8.5-10.1); Chloride 103 mmol/L (98-107); Estimated GFR 84.22 (mL/min/1.73m2); Glucose 85 mg/dL (74-106); Magnesium 1.9 mg/dL (1.8-2.4); Potassium 3.8 mmol/L (3.5-5.1); Sodium 137 mmol/L (136-145)
[2023-01-22] MEDS: Carbidopa 25/Levodopa 100 TAB PO ×4 (08:21→21:30)
[2023-01-22] MEDS: Patient's Own Medication 1 EACH MISC OP (08:22)
[2023-01-22] MEDS: Normal Saline 500 ML 30 ML IV (10:07)
[2023-01-22] MEDS: DOXYCYCLINE 100 MG in Normal Saline 100 ML IVPB ×2 (10:10→21:26)
[2023-01-22] MEDS: Normal Saline Flush 10 ML SYR IVP ×3 (10:10→20:58)
[2023-01-22 10:54] VITALS: BP 111/61; PULSE 59; RESP 18; TEMP 35.9; O2SAT 100
--- NOTE | 2023-01-22 11:20 | PTTR_ITS ---
PT Notes Visit Reasons: Pneumonia Inpatient Physical Therapy Treatment Note [facility] Date: 01/22/23 SUBJECTIVE: Landon states that he is waiting for his . He tells me she is bringing clothes and he is going home. OBJECTIVE: []? Therapeutic Exercises ([id number][]): Direct one-on-one instruction in therapeutic exercises to develop strength, endurance, range of motion and flexibility. ? Exercises seated LAQ, march x15 ea Standing side stepping and bkwd step with INSTRUCTIONAL SUPPORT SERVICES DIRECTOR 3x5' ea sti to stands x 5 with minimal assist with his hands (CGA from myself) ?Ambulation ? Assistive Device: FWW? Weight bearing: full Assist:CGA/SBA? Distance:?approx 200' ? Deviation: occasional help steering walker ? Provided skilled instruction in proper exercise performance ASSESSMENT:?tolerated session well. No LOB noted. Reminders for big mvmt patterns and to stand tall. PLAN: will continue to progress his functional mobility as per PT POC. TREATMENT CODE/TIME: [id number]. [id number]
--- NOTE | 2023-01-22 11:54 | RESPIRATORY ---
RT Assessment Start: 01/17/23 19:14 Freq: .q shift and prn Status: Active Protocol: Document 01/17/23 19:44 RT.HOSM (Rec: 01/17/23 20:03 RT.HOSM MED-20) RT Assessment Smoking History Smoking/Tobacco Use Status Former Tobacco Use Tobacco: How many years used 16 Quit Date 08/20/71 Tobacco Type cigarettes Packs per Day 1 Years smoked 16 Smoking packs per day 1 OXYGEN HISTORY: Current Respiratory Symptoms Current Respiratory Symptoms Cough,Shortness of breath Activity Activity Level Walks around the house with a cane Respiratory Breath Sounds Breath Sounds Any abnormal sounds, decreased breath sounds Pulse Rate <100 Respiratory Rate <18 Shortness of Breath None Respiratory Therapy Score Total 1 Assessment and Plan RT Treatment Protocol Lung Expansion Therapy Protocol Note Pt states he takes no respiratory medications at home
--- NOTE | 2023-01-22 13:53 | PGE_ITS ---
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 Continue prn tylenol, lidocaine patches. (2) Hypokalemia: Status: Resolved Assessment and plan: 3.8 follow, replete prn (3) Abdominal cramping: Status: Resolved Assessment and plan: resolved (4) Altered mental status: Status: Resolved Assessment and plan: Clear today, at baseline, awake, alert, pleasant, conversant, recalls friends in [place], their names, what they did for work, son and in to visit, he knows they are at [employer] [facility] [place] and they will be going back to [place] soon (5) Pneumonia: Status: Acute Assessment and plan: Continue zosyn + doxycycline day 6 - on auto stop after day 7. Continue regular diet. (6) B12 deficiency: Status: Acute Assessment and plan: Replete (7) Lower urinary tract symptoms (LUTS): Status: Resolved Assessment and plan: Check bladder scans, urine negative (8) Parkinsons disease: Assessment and plan: Continue sinemet (9) DVT prophylaxis: Status: Acute Assessment and plan: Sc enoxaparin (10) Discharge planning issues: Status: Acute Assessment and plan: Full code and patient are interested in SNF placement Discussed with Dr Griffith Subjective Subjective Patient reports: no new complaints, tolerating a regular diet, voiding w/o difficulty, bowel movement and afebrile; denies nausea or vomiting Exam Narrative Exam Narrative: General: Pleasant, C/A oriented x 4 HEENT: EOMI, MMM Heart: RRR, no m/r/g Lungs: Bilat diminished breath sounds Abdomen: soft, diffuse tenderness, nondistended, Extremities: no edema BLEs. Objective Last Vital Signs Temp 35.9 C L 01/22/23 10:54 Pulse 59 L 01/22/23 10:54 Resp 18 01/22/23 10:54 BP 111/61 01/22/23 10:54 Pulse Ox 100 01/22/23 10:54 Laboratory Results - last 24 hr 01/22/23 01/22/23 07:05 07:05 WBC 4.80 RBC 3.78 L Hgb 12.0 L Hct 34.9 L MCV 92 MCH 31.7 MCHC 34.4 RDW 14.3 H Plt Count 197 MPV 9.7 Immature Gran % 0.2 Neutrophils % 55.8 Lymphocytes % 24.2 Monocytes % 12.5 Eosinophils % 5.6 Basophils % 1.7 Nucleated RBC % 0.0 Absolute Neutrophils 2.68 Absolute Lymphocytes 1.16 L Absolute Monocytes 0.60 Absolute Eosinophils 0.27 Absolute Basophils 0.08 Sodium 137 Potassium 3.8 Chloride 103 Carbon Dioxide 26.9 Anion Gap 7.1 BUN 17 Creatinine 0.9 Est GFR (CKD-EPI 2020) 84.22 Glucose 85 Calcium 8.8 Magnesium 1.9 Time Spent with Patient Time Spent with Patient: 25-34 minutes Time was spent: preparing to see the patient(eg.review tests), ordering medications,tests, procedures, referring, communicating with other health human services care specialist, indepentently interpreting results, counseling the patient and care coordination
[2023-01-22] MEDS: Loperamide 2 MG CAP PO ×2 (14:10→22:41)
[2023-01-22 15:09] VITALS: BP 100/54; PULSE 54; RESP 16; TEMP 35.7; O2SAT 98
--- NOTE | 2023-01-22 17:52 | NUR.NOTE ---
Patient will be surrendering his service animals on Sunday to Animal/Game wardens. Discussion was held with charge nurse Mildred. M/S staff will transport patient to main entrance on Sunday and allow him time to say goodbye to his animals. Nursing Note:
[2023-01-22] MEDS: Lidocaine Patch Removal 1 EACH TP (20:31)
[2023-01-22] MEDS: Tamsulosin 0.4 MG CAPCR PO (20:59)
[2023-01-22] MEDS: Acetaminophen 325 MG TAB 650 MG PO (21:25)
[2023-01-22 21:30] VITALS: BP 141/71; PULSE 60; RESP 18; TEMP 36.4; O2SAT 98
[2023-01-23 01:00] VITALS: BP 137/71; PULSE 62; RESP 18; TEMP 36.4; O2SAT 97
[2023-01-23] MEDS: PIPERACILLIN/TAZO 3.375 GM in Normal Saline 50 ML IVPB ×3 (04:48→19:39)
[2023-01-23 05:14] VITALS: BP 126/65; PULSE 59; RESP 18; TEMP 36.1; O2SAT 97
[2023-01-23 06:28] LABS: Abs Immature Grans 0.01 10^3/uL (0.0-0.06); Absolute Basophil Count 0.07 10^3/uL (0.0-0.2); Absolute Eosinophil Count 0.27 10^3/uL (0.0-0.7); Absolute Lymphocyte Count 1.24 10^3/uL (1.2-3.4); Absolute Monocyte Count 0.58 10^3/uL (0.1-0.8); Absolute Neutrophil Count 2.62 10^3/uL (1.2-6.7); Basophils % 1.5; Eosinophils % 5.6; HCT 34.5 % (40.0-50.0); Immature Grans % 0.2; Lymphocytes % 25.9; MCH 31.9 pg (27.0-33.0); MCHC 34.8 % (32.0-36.0); MCV 92 fL (80-95); MPV 9.4 fL (8.0-11.0); Monocytes % 12.1; Neutrophils % 54.7; Platelet Count 197 10^3/uL (130-400); RBC 3.76 10^6/uL (4.36-5.78); WBC 4.79 10^3/uL (4.4-10.8)
[2023-01-23 06:43] LABS: BUN 14 mg/dL (7-18); CREATININE 0.9 mg/dL (0.70-1.30); Calcium 8.7 mg/dL (8.5-10.1); Chloride 103 mmol/L (98-107); Estimated GFR 84.22 (mL/min/1.73m2); Glucose 80 mg/dL (74-106); Magnesium 1.7 mg/dL (1.8-2.4); Potassium 3.6 mmol/L (3.5-5.1); Sodium 138 mmol/L (136-145)
[2023-01-23 06:55] VITALS: BP 113/64; PULSE 59; TEMP 36.4; O2SAT 98
[2023-01-23] MEDS: Patient's Own Medication 1 EACH MISC OP (08:37)
[2023-01-23] MEDS: Lidocaine 5% Patch 1 PATCH TP (08:38)
[2023-01-23] MEDS: Citalopram 10 MG TAB PO (08:39)
[2023-01-23] MEDS: Finasteride 5 MG TAB PO (08:39)
[2023-01-23] MEDS: Carbidopa 25/Levodopa 100 TAB PO ×4 (08:39→21:27)
[2023-01-23] MEDS: Rosuvastatin 5 MG TAB PO (08:39)
[2023-01-23] MEDS: amLODIPine 5 MG TAB PO (08:39)
[2023-01-23] MEDS: Normal Saline Flush 10 ML SYR IVP ×2 (09:17→10:13)
[2023-01-23] MEDS: Cholecalciferol (Vitamin D3) 1,000 UNIT TAB 1000 UNITS PO (09:18)
[2023-01-23] MEDS: Benzonatate 200 MG CAP PO ×3 (09:18→19:41)
[2023-01-23] MEDS: guaiFENesin 600 MG TABCR PO ×2 (09:18→19:41)
[2023-01-23] MEDS: Allopurinol 300 MG TAB PO (09:18)
[2023-01-23] MEDS: Cyanocobalamin 500 MCG TAB 1000 MCG PO (09:18)
[2023-01-23] MEDS: Acetaminophen 325 MG TAB 650 MG PO ×2 (09:31→19:41)
[2023-01-23] MEDS: DOXYCYCLINE 100 MG in Normal Saline 100 ML IVPB ×2 (10:13→23:41)
--- NOTE | 2023-01-23 10:14 | PDOC.CMPRO ---
Date of service: 01/23/23 Time of Service: 10:14 Care Management Progress Note Progress Note Text Progress Note Text: S/O:Landon was sitting up in a chair when CM met with him. He had just completed a walk with PT and did very well. He was CGA but Santa the MENTAL HEALTH NURSE PRACTITIONER stated that she did not need to assist him at all. Landon was even able to go up and down stairs. This morning Landon received a bed offer from [facility] which he and Maira happily accepted. The offer is pending authorization from his insurance company, which will hopefully be forthcoming in the next day or so. A:Landon is an 82 year old man admitted on 01/17/23 with pneumonia P:Landon will likely go to a SNF for short term rehab prior to discharging back to the community. He has received a bed [facility], pending prior authorization from his insurance company. Landon and his plan to travel to [place] next month to live with one of their sons. He will follow up with his community providers and plan of care and transport with family. CM will follow and continue to assess for discharge needs.
[2023-01-23 10:57] VITALS: BP 97/59; PULSE 66; TEMP 35.8; O2SAT 96
--- NOTE | 2023-01-23 11:00 | PGE_ITS ---
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 Continue prn tylenol, lidocaine patches. (2) Hypokalemia: Status: Resolved Assessment and plan: 3.6 follow, replete prn (3) Abdominal cramping: Status: Resolved Assessment and plan: resolved (4) Altered mental status: Status: Resolved Assessment and plan: Clear today, at baseline, awake, alert, pleasant, conversant Family in to visit - eager to go to rehab, understands he is going home to [place] in one week and would like to be strong enough for the trip (5) Pneumonia: Status: Acute Assessment and plan: Resolved - 7d course of abx completed (6) B12 deficiency: Status: Acute Assessment and plan: Replete (7) Lower urinary tract symptoms (LUTS): Status: Resolved Assessment and plan: Check bladder scans, urine negative (8) Parkinsons disease: Assessment and plan: Continue sinemet (9) DVT prophylaxis: Status: Acute Assessment and plan: Sc enoxaparin (10) Discharge planning issues: Status: Acute Assessment and plan: Full code and patient are interested in SNF placement Discussed with Dr Griffith Subjective Subjective Patient reports: no new complaints, tolerating liquids well, tolerating a regular diet, voiding w/o difficulty, bowel movement and afebrile; denies diarrhea, nausea, vomiting or shortness of breath Interval history since last seen: Awake and alert, no complaints, sitting in a the chair, and son in to visit. Exam Narrative Exam Narrative: General: Pleasant, C/A oriented x 4 HEENT: EOMI, MMM Heart: RRR, no m/r/g Lungs: Bilat diminished breath sounds Abdomen: soft, diffuse tenderness, nondistended, Extremities: no edema BLEs. Objective Last Vital Signs Temp 35.7 C L 01/23/23 16:29 Pulse 52 L 01/23/23 16:29 Resp 16 01/23/23 16:29 BP 111/64 01/23/23 16:29 Pulse Ox 99 01/23/23 16:29 Laboratory Results - last 24 hr 01/23/23 01/23/23 06:05 06:05 WBC 4.79 RBC 3.76 L Hgb 12.0 L Hct 34.5 L MCV 92 MCH 31.9 MCHC 34.8 RDW 14.0 Plt Count 197 MPV 9.4 Immature Gran % 0.2 Neutrophils % 54.7 Lymphocytes % 25.9 Monocytes % 12.1 Eosinophils % 5.6 Basophils % 1.5 Nucleated RBC % 0.0 Absolute Neutrophils 2.62 Absolute Lymphocytes 1.24 Absolute Monocytes 0.58 Absolute Eosinophils 0.27 Absolute Basophils 0.07 Sodium 138 Potassium 3.6 Chloride 103 Carbon Dioxide 27.0 Anion Gap 8.0 BUN 14 Creatinine 0.9 Est GFR (CKD-EPI 2020) 84.22 Glucose 80 Calcium 8.7 Magnesium 1.7 L Time Spent with Patient Time Spent with Patient: 25-34 minutes Time was spent: preparing to see the patient(eg.review tests), ordering medications,tests, procedures, referring, communicating with other health technical healthcare consultant, indepentently interpreting results, counseling the patient and care coordination
--- NOTE | 2023-01-23 11:46 | PT.INTREAT ---
Date of service: 01/23/23 Time of Service: 11:20 PT Notes Visit Reasons: Pneumonia Inpatient Physical Therapy Treatment Note [facility] Date: 01/23/23 PRECAUTIONS: Fall, standard, activity as tolerated. SUBJECTIVE: Patient reports feeling a bit better, although c/o still moving slow. Confused as to the discharge plan. Reports not sleeping at all last night, not eating dinner because he was alseep, hadn't had breakfast yet at 9:49. As of 11:20 reports he did eat breakfast. OBJECTIVE: IV attached LUE, sitting up in recliner with 2 blankets. ? PAIN: None reported at beginning of treatment, 3/10 reported at approx 150 feet of ambulation in ankle, unable to say right, left or both. VITALS: monitored by nursing staff ? BED MOBILITY/TRANSFERS? Sit-stand: CGA ? Stand-sit: CGA ? Bed-Chair: CGA ? Chair-bed: CGA Provided skilled cues and instruction on performance and technique throughout. Gait Training ([id number]): Direct one-on-one instruction and skilled instruction in: [x] employing an assistive device [x] movement sequencing [x] turning and movement with proper form [x] Provided verbal cues for equipment management and technique [x] Provided instruction in gait pattern? GAIT? Assistive Device: FWW ? Weight bearing: full Assist: CGA ? Distance:? stairs training.? Deviation: Forward flexed posture on stairs ? STAIRS: Ascended and descended 2 six inch stairs and 3 four inch stairs, CGA with bilateral railings. ? Therapeutic Exercises (34007o2): Direct one-on-one instruction in therapeutic exercises to develop strength, endurance, range of motion and flexibility. ?Ambulation ? Assistive Device: FWW ? Weight bearing: full Assist: CGA / SBA afternoon ? Distance:? 300 feet / 400 feet afternoon ? Deviation: Patient had adequate step height, appeared very focused on that. Gait had a marching feel to it. Adequate and symmetrical step length. Reduced aicha. Forward flexed posture. / afternoon patient maintained adequate step height with less focus, more fluidity in the motion. Adequate and symmetrical step length. Improved aicha. Forward flexed posture. ? Provided skilled instruction in proper exercise performance Provided skilled manual cues to facilitate proper muscle recruitment and/or form. ASSESSMENT:? Patient tolerates therapy well, resting comfortably in recliner at end of treatment. [place] alarm reactivated. Call boswell and telephone in easy reach. / Afternoon patient tolerates therapy well, resting in recliner with celeste alarm active, blanket x2, call boswell in easy reach. PLAN: Continue global strengthening per plan of care until patient is medically cleared for discharge. TREATMENT CODE/TIME: 25 minutes beginning at 11:20, 17 minutes beginning at 15:42
[2023-01-23] MEDS: Normal Saline 500 ML 100 ML IV (12:17)
[2023-01-23] MEDS: Magnesium Chloride 64 MG TABCR PO ×2 (12:18→19:40)
[2023-01-23 16:29] VITALS: BP 111/64; PULSE 52; RESP 16; TEMP 35.7; O2SAT 99
[2023-01-23] MEDS: Enoxaparin 40 MG/0.4 ML SYR SC (17:28)
[2023-01-23 18:49] LABS: Source Nasal/Nares
[2023-01-23 19:32] LABS: COVID-19 PCR Negative (Negative)
[2023-01-23] MEDS: Tamsulosin 0.4 MG CAPCR PO (19:41)
[2023-01-23] MEDS: Lidocaine Patch Removal 1 EACH TP (19:42)
[2023-01-23 20:37] VITALS: BP 146/70; PULSE 63; RESP 16; TEMP 36.2; O2SAT 99
[2023-01-24 00:26] VITALS: BP 124/60; PULSE 62; RESP 16; TEMP 36.5; O2SAT 96
[2023-01-24 04:26] VITALS: BP 126/65; PULSE 64; RESP 18; TEMP 36.5; O2SAT 98
[2023-01-24] MEDS: PIPERACILLIN/TAZO 3.375 GM in Normal Saline 50 ML IVPB (04:33)
[2023-01-24 07:18] LABS: Abs Immature Grans 0.01 10^3/uL (0.0-0.06); Absolute Basophil Count 0.07 10^3/uL (0.0-0.2); Absolute Eosinophil Count 0.26 10^3/uL (0.0-0.7); Absolute Monocyte Count 0.54 10^3/uL (0.1-0.8); Absolute Neutrophil Count 2.39 10^3/uL (1.2-6.7); Basophils % 1.5; Eosinophils % 5.7; HCT 33.1 % (40.0-50.0); HGB 11.7 g/dL (13.5-17.5); Immature Grans % 0.2; Lymphocytes % 28.4; MCH 32.5 pg (27.0-33.0); MCHC 35.3 % (32.0-36.0); MCV 92 fL (80-95); MPV 10.1 fL (8.0-11.0); Monocytes % 11.8; Neutrophils % 52.4; Platelet Count 204 10^3/uL (130-400); RDW 14.4 % (11.8-14.1); WBC 4.57 10^3/uL (4.4-10.8)
[2023-01-24 07:34] LABS: Anion Gap 7.9 mmol/L (3-11); BUN 15 mg/dL (7-18); C-Reactive Protein 0.06 mg/dL (0.0-0.3); CO2 26.1 mmol/L (21.0-32.0); CREATININE 0.9 mg/dL (0.70-1.30); Calcium 8.7 mg/dL (8.5-10.1); Chloride 105 mmol/L (98-107); Estimated GFR 84.22 (mL/min/1.73m2); Glucose 79 mg/dL (74-106); Magnesium 1.8 mg/dL (1.8-2.4); Potassium 3.8 mmol/L (3.5-5.1); Sodium 139 mmol/L (136-145)
[2023-01-24 07:58] LABS: Procalcitonin < 0.1 ng/mL
[2023-01-24 08:15] VITALS: BP 119/68; PULSE 69; RESP 16; TEMP 35.9; O2SAT 97
[2023-01-24] MEDS: Lidocaine 5% Patch 1 PATCH TP (08:15)
[2023-01-24] MEDS: Polyethylene Glycol 3350 17 GM PACKET PO (08:15)
[2023-01-24] MEDS: Cyanocobalamin 500 MCG TAB 1000 MCG PO (08:16)
[2023-01-24] MEDS: Patient's Own Medication 1 EACH MISC OP (08:16)
[2023-01-24] MEDS: Finasteride 5 MG TAB PO (08:16)
[2023-01-24] MEDS: amLODIPine 5 MG TAB PO (08:16)
[2023-01-24] MEDS: Allopurinol 300 MG TAB PO (08:16)
[2023-01-24] MEDS: Carbidopa 25/Levodopa 100 TAB PO ×4 (08:16→21:21)
[2023-01-24] MEDS: Cholecalciferol (Vitamin D3) 1,000 UNIT TAB 1000 UNITS PO (08:16)
[2023-01-24] MEDS: guaiFENesin 600 MG TABCR PO ×2 (08:16→21:00)
[2023-01-24] MEDS: Citalopram 10 MG TAB PO (08:16)
[2023-01-24] MEDS: Magnesium Chloride 64 MG TABCR PO ×2 (08:17→20:59)
[2023-01-24] MEDS: Rosuvastatin 5 MG TAB PO (08:17)
[2023-01-24] MEDS: Benzonatate 200 MG CAP PO ×2 (08:17→15:16)
[2023-01-24] MEDS: DOXYCYCLINE 100 MG in Normal Saline 100 ML IVPB (09:50)
--- NOTE | 2023-01-24 10:50 | PTTR_ITS ---
Date of service: 01/24/23 Time of Service: 10:30 PT Notes Visit Reasons: Pneumonia Inpatient Physical Therapy Treatment Note [facility] Date: 01/24/23 PRECAUTIONS: Fall, standard, activity as tolerated. SUBJECTIVE: Patient reports feeling better today. Anticipates discharge to SNF soon, although is unclear what time. Refers to it as graduation. Reports he and his each just had a Reiki treatment. OBJECTIVE: Sitting up in recliner with feet down. present. IV attatched LUE. [place] alarm active. Agreeable to therapy.? PAIN: None reported VITALS: monitored by nursing staff ? Therapeutic Exercises (24615v3): Direct one-on-one instruction in therapeutic exercises to develop strength, endurance, range of motion and flexibility. ?Ambulation ? Assistive Device: FWW ? Weight bearing: full Assist: SBA, help managing IV pole? Distance:? 600 feet ? Deviation: Reduced step height, reduced step length, reduced aicha compared to yesterday. No scuffling, feet still clear the floor, but barely. Posture improved since yesterday although still forward flexed, less so. ? Provided skilled instruction in proper exercise performance Provided skilled manual cues to facilitate proper muscle recruitment and/or form. ASSESSMENT:? Patient tolerates therapy well, returns to recliner at end of treatment. [place] alarm reactivated. PLAN: Continue global strengthening per plan of care until patient discharges to SNF TREATMENT CODE/TIME: 18 minutes beginning at 10:30
--- NOTE | 2023-01-24 11:07 | PDOC.CMPRO ---
Date of service: 01/24/23 Time of Service: 11:07 Care Management Progress Note Progress Note Text Progress Note Text: S/O:Landon was sitting up in a chair when CM met with him. He remains pleasant and engaged. Landon continues to do well with PT and has been ambulating in the halls. There has been no response from Landon's insurance carrier regarding the prior authorization. Maira contacted the company herself and learned that a decision may not be reached for several more days. As Landon has done so well, she informed CM that she now feels comfortable taking him home. They plan to fly to [place] next week, so they would only be home for 4-5 days. She stated that she would like to take him home tomorrow. CM shared the plan with the provider. A:Landon is an 82 year old man admitted on 01/17/23 with pneumonia P:Landon will likely be discharged home with his tomorrow. He will follow up with his PCP in [place] when he arrives there next week . Maira will transport Landon home and they will fly together to [place] on 01/30/23. CM will follow and continue to assess for discharge needs.
[2023-01-24 15:35] VITALS: BP 125/69; PULSE 63; RESP 18; TEMP 36.2; O2SAT 98
--- NOTE | 2023-01-24 17:08 | W.PM.PROGNOT ---
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 Continue prn tylenol, lidocaine patches. (2) Hypokalemia: Status: Resolved Assessment and plan: Potassium 3.8 today. Continue present meds. (3) Altered mental status: Status: Resolved Assessment and plan: Clear today, at baseline, awake, alert, pleasant, conversant Family in to visit - eager to go to rehab, understands he is going home to [place] in one week and would like to be strong enough for the trip (4) Pneumonia: Status: Acute Assessment and plan: Resolved - 7d course of abx completed (5) Parkinsons disease: Assessment and plan: Continue sinemet. Stable. Subjective Subjective Patient reports: no new complaints Interval history since last seen: Generally feels well. He continues to be forgetful. He is now off of antibiotics. No breathing problems no cough. Exam Narrative Exam Narrative: O2 sats 97% on room air. He appeared in no distress. He was talkative and pleasant. Posterior lung exam sounded clear on the right and left. Heart sounds were regular abdomen was soft and nontender. The lower extremity showed no significant edema. Neurologically he has the halting movements of his Parkinson's but no focal deficits. Objective Last Vital Signs Temp 36.2 C L 01/24/23 15:35 Pulse 63 01/24/23 15:35 Resp 18 01/24/23 15:35 BP 125/69 01/24/23 15:35 Pulse Ox 98 01/24/23 15:35 Laboratory Results - last 24 hr 01/17/23 01/23/23 01/24/23 17:35 18:40 06:25 WBC RBC Hgb Hct MCV MCH MCHC RDW Plt Count MPV Immature Gran % Neutrophils % Lymphocytes % Monocytes % Eosinophils % Basophils % Nucleated RBC % Absolute Neutrophils Absolute Lymphocytes Absolute Monocytes Absolute Eosinophils Absolute Basophils Sodium 139 Potassium 3.8 Chloride 105 Carbon Dioxide 26.1 Anion Gap 7.9 BUN 15 Creatinine 0.9 Est GFR (CKD-EPI 2020) 84.22 Glucose 79 Calcium 8.7 Magnesium 1.8 C-Reactive Protein 0.06 Procalcitonin COVID-19 Source Nasal/Nares SARS-CoV-2 (PCR) Negative M. pneumoniae Source Cancelled M. pneumoniae (PCR) Cancelled 01/24/23 01/24/23 06:25 06:25 WBC 4.57 RBC 3.60 L Hgb 11.7 L Hct 33.1 L MCV 92 MCH 32.5 MCHC 35.3 RDW 14.4 H Plt Count 204 MPV 10.1 Immature Gran % 0.2 Neutrophils % 52.4 Lymphocytes % 28.4 Monocytes % 11.8 Eosinophils % 5.7 Basophils % 1.5 Nucleated RBC % 0.0 Absolute Neutrophils 2.39 Absolute Lymphocytes 1.30 Absolute Monocytes 0.54 Absolute Eosinophils 0.26 Absolute Basophils 0.07 Sodium Potassium Chloride Carbon Dioxide Anion Gap BUN Creatinine Est GFR (CKD-EPI 2020) Glucose Calcium Magnesium C-Reactive Protein Procalcitonin < 0.1 COVID-19 Source SARS-CoV-2 (PCR) M. pneumoniae Source M. pneumoniae (PCR) Reviewed Pertinent PMH: Yes Time Spent with Patient Time Spent with Patient: 35-49 minutes Time was spent: preparing to see the patient(eg.review tests), obtaining and/or reviewing separately otained hiistory, ordering medications,tests, procedures, referring, communicating with other health mall plant caretaker and indepentently interpreting results
[2023-01-24] MEDS: Tamsulosin 0.4 MG CAPCR PO (20:59)
[2023-01-24] MEDS: Lidocaine Patch Removal 1 EACH TP (21:06)
[2023-01-24 23:37] VITALS: BP 121/66; PULSE 63; RESP 18; TEMP 36.4; O2SAT 98
[2023-01-25 04:14] VITALS: BP 118/71; PULSE 65; RESP 20; TEMP 36.5; O2SAT 97
[2023-01-25 07:25] LABS: Abs Immature Grans 0.01 10^3/uL (0.0-0.06); Absolute Basophil Count 0.05 10^3/uL (0.0-0.2); Absolute Eosinophil Count 0.21 10^3/uL (0.0-0.7); Absolute Lymphocyte Count 1.35 10^3/uL (1.2-3.4); Absolute Monocyte Count 0.57 10^3/uL (0.1-0.8); Absolute Neutrophil Count 2.68 10^3/uL (1.2-6.7); Eosinophils % 4.3; HCT 33.2 % (40.0-50.0); HGB 11.4 g/dL (13.5-17.5); Immature Grans % 0.2; Lymphocytes % 27.7; MCH 31.2 pg (27.0-33.0); MCHC 34.3 % (32.0-36.0); MCV 91 fL (80-95); MPV 9.5 fL (8.0-11.0); Monocytes % 11.7; Neutrophils % 55.1; Platelet Count 198 10^3/uL (130-400); RBC 3.65 10^6/uL (4.36-5.78); RDW 14.1 % (11.8-14.1); RDW-SD 47.5 fL; WBC 4.87 10^3/uL (4.4-10.8)
[2023-01-25 07:42] LABS: Anion Gap 9.9 mmol/L (3-11); BUN 15 mg/dL (7-18); CO2 24.1 mmol/L (21.0-32.0); CREATININE 0.8 mg/dL (0.70-1.30); Calcium 8.8 mg/dL (8.5-10.1); Chloride 105 mmol/L (98-107); Estimated GFR 87.27 (mL/min/1.73m2); Glucose 81 mg/dL (74-106); Potassium 3.9 mmol/L (3.5-5.1); Sodium 139 mmol/L (136-145)
[2023-01-25 07:52] VITALS: BP 131/69; PULSE 71; RESP 19; TEMP 36.7; O2SAT 97
[2023-01-25] MEDS: Lidocaine 5% Patch 1 PATCH TP (08:03)
[2023-01-25] MEDS: Cholecalciferol (Vitamin D3) 1,000 UNIT TAB 1000 UNITS PO (08:04)
[2023-01-25] MEDS: Cyanocobalamin 500 MCG TAB 1000 MCG PO (08:04)
[2023-01-25] MEDS: Citalopram 10 MG TAB PO (08:04)
[2023-01-25] MEDS: Magnesium Chloride 64 MG TABCR PO (08:04)
[2023-01-25] MEDS: Polyethylene Glycol 3350 17 GM PACKET PO (08:04)
[2023-01-25] MEDS: Benzonatate 200 MG CAP PO (08:04)
[2023-01-25] MEDS: Rosuvastatin 5 MG TAB PO (08:04)
[2023-01-25] MEDS: amLODIPine 5 MG TAB PO (08:05)
[2023-01-25] MEDS: Carbidopa 25/Levodopa 100 TAB PO (08:05)
[2023-01-25] MEDS: guaiFENesin 600 MG TABCR PO (08:05)
[2023-01-25] MEDS: Finasteride 5 MG TAB PO (08:05)
[2023-01-25] MEDS: Allopurinol 300 MG TAB PO (08:05)
[2023-01-25] MEDS: Patient's Own Medication 1 EACH MISC OP (08:08)
--- NOTE | 2023-01-25 10:59 | W.PM.DS.N ---
Date of service: 01/25/23 Time of Service: 11:00 DS: Diagnosis Discharge Diagnosis (1) Neck pain: Status: Acute Asessment and Plan: Functional neck pain treated with OTC treatments. (2) Hypokalemia: Status: Resolved Asessment and Plan: Low potassium resolved with oral replacement (3) Altered mental status: Status: Resolved Asessment and Plan: Altered mental status on admission has resolved. Attributed to left upper lobe pneumonia/infection. (4) Pneumonia: Status: Acute Asessment and Plan: Left upper lobe pneumonia treated with 7 days of Zosyn and doxycycline. (5) Parkinsons disease: Asessment and Plan: Parkinson's disease stable on present meds. Discharge Plan Disposition Patient Disposition: Home Condition: Stable Condition: Improving Discharge Details Reason For Visit: Pneumonia Admit Date/Time: 01/17/23 14:15 Admit Provider: Tracy Lincoln Attending Provider: Tracy Lincoln Primary Care Provider: [facility] Hospital Course: This is an 82 yo male with past medical history of parkinson's disease, enlarged prostate and hypertension, who presented to the [facility] ED for what his described as not acting himself. reported patient was well 1 day prior. reports she woke up and is unsure how long the patient had been awake. He had all the window's open in their camper and she states that he was telling her that the air was poisoned. He then started to threaten her when she questioned what he was saying which is out of the normal for him. He stated he wasn't saying the air was poisoned but rather the air had a smell of paint to it. His called ems. Patient had stable vitals in the ED, was alert and oriented x4 but appeared restless in bed. Patient denied nausea, vomiting, fever, chest pain, shortness of breath, he does have a cough. Labs in the ED unremarkable.? Chest xray with left upper lobe infiltrate, other imaging unremarkable. Covid was negative. Patient admitted to the medical floor. Patient completed 7 days of IV antibiotics, Zosyn/doxycycline. His mental status has cleared to baseline., He has some baseline dementia. He worked with physical therapy and 1 day prior to discharge was cleared by physical therapy to walk independently with a walker. He had some neck pain that was well controlled with [id number] analgesics. He is discharged to home with plans to transition to the [facility] where he will be in an assisted living home situation. ? Home Meds and New Rx's Prescriptions: Continued amlodipine 5 mg Tablet 5 mg PO DAILY tamsulosin 0.4 mg Capsule 0.4 mg PO QHS clotrimazole-betamethasone 1-0.05 % Cream 1 applic TOPICAL BID rosuvastatin 5 mg Tablet 5 mg PO DAILY citalopram 10 mg tablet 10 mg PO DAILY Patient Comments: TAKE ONE TABLET BY MOUTH EVERY DAY finasteride 5 mg tablet 5 mg PO QPM Patient Comments: TAKE ONE TABLET BY MOUTH EVERY DAY dorzolamide-timolol 22.3-6.8 mg/mL Drops 1 drp OPHTHALMIC (EYE) BID allopurinol 300 mg Tablet 300 mg PO DAILY carbidopa-levodopa 25-100 mg Tablet 1 tab PO TID cholecalciferol (vitamin D3) [Vitamin D3] 1,000 unit Capsule 1,000 unit PO DAILY difluprednate [Durezol] 0.05 % Drops 1 drp OPHTHALMIC (EYE) BID Discharge Instructions Instructions: Community Acquired Pneumonia (DC) Stand Alone Forms: Nursing Discharge Form Referrals: PCP [Other] (Please follow up with your PCP. ) Activity:: Activity as Tolerated Equipment/Supplies:: Walker Diet:: As Tolerated Discharge Orders Discharge Orders: Discharge Order (Routine); Ordered 01/25/23 Ordered By: Jez Garcia DS: Summary Time Spent with Patient providing and/or coordinating discharge services: Greater than 30 minutes Status at Discharge Functional status at discharge: uses cane/walker Overall status at discharge: patient is back to baseline Mental Status: mental status grossly normal Speech and Movement: speech and movement normal Mood: congruent mood Affect: normal affect Exam Narrative Exam Narrative: Exam on day of discharge patient was alert talkative and appropriate. He has some short-term memory issues but otherwise good recall of past events. His speech is clear. He had no facial asymmetry. His neurologic exam was largely nonfocal other than his halting gait which was assisted by use of the walker. His posterior lung exam sounded clear bilaterally heart sounds are regular abdomen nontender lower extremities no significant edema. Psych Mental Status: mental status grossly normal Speech and Movement: speech and movement normal Mood: congruent mood Affect: normal affect DS: Data Vitals/I&O Vitals and I&O: Vital Signs Temperature 36.7 C 01/25/23 07:52 Temperature Source Tympanic 01/25/23 07:52 Pulse 71 01/25/23 07:52 Pulse Rhythm Regular 01/25/23 08:54 Pulse 50 L 01/17/23 16:31 Respiratory Rate 19 01/25/23 07:52 Respiratory Effort Normal 01/25/23 08:54 Respiratory Depth Normal 01/25/23 08:54 Respiratory Pattern Normal 01/25/23 08:54 Blood Pressure 131/69 01/25/23 07:52 Blood Pressure Mean 79 01/17/23 16:30 Blood Pressure Position Sitting 01/17/23 10:22 Pulse Oximetry 97 01/25/23 07:52 Oxygen Delivery Method Room Air 01/25/23 07:52 Oxygen Flow Rate 0 01/25/23 07:52 Pain Level 0 01/24/23 15:35 Comment Pt. denies pain at this time. 01/23/23 12:18 Intake & Output 01/24/23 01/24/23 01/25/23 11:59 23:59 11:59 Intake Total 490 / 970 480 / 970 100 / 100 Output Total 250 / 550 300 / 550 400 / 400 Balance 240 / 420 180 / 420 -300 / -300 Intake: IV 250 / 250 100 / 100 Oral 240 / 720 480 / 720 Output: Urine 250 / 550 300 / 550 400 / 400 Other: Urine Color Pale Yellow Yellow Yellow Light Devika Urine Appearance Clear Clear Clear Urine Odor None Normal Comment void x 1, mixed with stool. pT voided - no hat Stool Size Moderate Stool Characteristics Soft Brown Black Voiding Methods Bedside Commode Urinal Bedside Commode Diaper Incontinent Data Completed and Pending Labs on day of discharge: Labs from last 24 hours 01/25/23 01/25/23 06:55 06:55 WBC 4.87 RBC 3.65 L Hgb 11.4 L Hct 33.2 L MCV 91 MCH 31.2 MCHC 34.3 RDW 14.1 Plt Count 198 MPV 9.5 Immature Gran % 0.2 Neutrophils % 55.1 Lymphocytes % 27.7 Monocytes % 11.7 Eosinophils % 4.3 Basophils % 1.0 Nucleated RBC % 0.0 Absolute Neutrophils 2.68 Absolute Lymphocytes 1.35 Absolute Monocytes 0.57 Absolute Eosinophils 0.21 Absolute Basophils 0.05 Sodium 139 Potassium 3.9 Chloride 105 Carbon Dioxide 24.1 Anion Gap 9.9 BUN 15 Creatinine 0.8 Est GFR (CKD-EPI 2020) 87.27 Glucose 81 Calcium 8.8 PFSH All Active Problems (Updated 01/25/23 @ 11:02 by Jez Garcia MD) Neck pain (Acute) Pneumonia (Acute) Medical History (Updated 01/25/23 @ 11:02 by Jez Garcia MD) B12 deficiency Chronic knee pain Full code status Gout HTN (hypertension) Osteoarthritis of right knee Parkinsonian festinating gait determined by examination Parkinsons disease Surgical History History of repair of retinal defect by laser photocoagulation Social History Smoking/Tobacco Use Status: Former Tobacco Use Quit Date: 08/20/71 Tobacco: How many years used: 16 Smoking risk assessment performed?: Yes Alcohol Intake: current Alcohol Intake frequency: holidays/special occasions only Drug use: Never Substance use type: does not use Housing: condominium Do you feel safe at home: Yes Do you feel safe in your relationship?: Yes Time Spent with Patient Time Spent with Patient: <45 minutes Time was spent: preparing to see the patient(eg.review tests), obtaining and/or reviewing separately otained hiistory, ordering medications,tests, procedures, referring, communicating with other health personal carer, indepentently interpreting results, counseling the patient and care coordination
--- NOTE | 2023-01-25 15:19 | CMDISCH_ITS ---
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 Visits: 1 Answers: Total Score: 14 Risk of Readmission: High Risk Care Management Discharge Plan Reason for Hospitalization: AMS/Parkinsons disease Discharge Plan: Landon will be discharged home with his later today. They will return to their camp on [place] until Sunday when they will fly to [place]. Landon will follow up with his providers in [place]. Jose Alberto plan to move into an assisted living facility when they arrive. Patient/Family Education Needs: Review of discharge instructions, limitations, activity, follow up plan, discuss Ask Me Three
--- NOTE | 2023-01-26 14:29 | INDS_ITS ---
PT Notes Visit Reasons: Pneumonia Inpatient Physical Therapy Discharge Summary Date: 01/26/23 Treatment Dates: 01/19/23 - 01/24/23 Referring Doctor: Belén Damon NP PT Orders: PT CONSULT: limited ability to ambulate This document serves as a summary of care. No PT services were provided on this date. Patient Profile/Admitting Diagnosis: Patient admitted from ER after demonstrating altered mental status at home. Admitted for medical management of pneumonia. PT consult requested for evaluation and treatment of mobility impairments. Patient participated in 8 sessions of PT intervention over the course of 7 days. He was able to demonstrate safety and mobility sufficient to allow for safe return home with family support. 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 Curently at his camp on [address] [facility], where he and his spend the summer. Plan to head to [place] in 2 weeks to stay with their son for several weeks, before wintering in [place]. States that he typically ambulates with either a FWW or 4WW, depending on the terrain. He generally has his present when he walks, stating he gets nervous walking on his own. Equipment Owned/DME: FWW Subjective: Objective: ROM: Right Upper Extremity: WFL Left Upper Extremity: WFL Right Lower Extremity: WFL Left Lower Extremity: WFL Cervical motion restricted through all planes, although no significant pain reproduction by patient report. Strength: Right Upper Extremity: Shoulder flexion 4/5. Biceps 5/5. Triceps 5/5. Phytopathology Teacher is strong and equal. Left Upper Extremity: Shoulder flexion 4/5. Biceps 5/5. Triceps 5/5. Phytopathology Teacher is strong and equal. Right Lower Extremity: Hip flexion 5/5. Quads 5/5. HS 5/5. Ankle DF 5/5 Left Lower Extremity: Hip flexion 5/5. Quads 5/5. HS 5/5. Ankle DF 5/5 Bed Mobility/Transfers: supine-sit: SBA sit-stand: SBA stand-sit: SBA Gait: ?Assistive Device: FWW ?Weight bearing: full ?Assist: SBA, help managing IV pole?Distance:? 600 feet ?Deviation: Reduced step height, reduced step length, reduced aicha? STAIRS: Ascended and descended 2 six inch stairs and 3 four inch stairs, CGA with bilateral railings. Balance: Static Sitting: good Dynamic Sitting: good Static Standing: fair Dynamic Standing: fair Assessment: Patient is an 82 year old male referred to physical therapy services for evaluation and treatment of mobility impairments. Patient presented with acute on chronic mobility issues, with chronic pain and underlying Parkinson's Disease. He demonstrated significant balance impairment and limited safety awareness contributing to mobility impairment and increased risk for falls. He was able to demonstrate improved mobility and safety sufficient to allow for safe return home with family support. Continue to recommend seeking outpatient PT interventions after his upcoming travels. Goals: (ALL GOALS MET) Goals X1 week 1. Supine-Sit : supervision 2. Sit-Supine : supervision 3. Sit-Stand : supervision 4. Stand-Sit : supervision 5. Bed-Chair : supervision with FWW 6. Chair-Bed : supervision with FWW 7. Gait : supervision with FWW x 50' Plan of Care/Treatment Plan: D/C from PT in acute care setting. DISCHARGE RECOMMENDATIONS: Home with outpatient PT TREATMENT CODE/TIME: none Amena Mota, PT, DPT [facility]
[2023-01-28 11:33] LABS: Mycoplasma Pneumoniae PCR Negative; Specimen source Nasal
== END 2023-01-25 12:32 | disposition home or self-care (01) | DRG 194 ==
LOC: ER 15:10 → MS 17:16
PROVIDERS: Family Medicine; Nurse Practitioner Family; Admitting Provider Internal Medicine; Emergency Provider Emergency Medicine; PCP Nurse Practitioner Family; Visit Provider Internal Medicine
DX: J18.9 Pneumonia, unspecified organism (principal); F05 Delirium due to known physiological condition; G20 Parkinson's disease; M54.2 Cervicalgia; I10 Essential (primary) hypertension; E53.8 Deficiency of other specified B group vitamins; E87.6 Hypokalemia; M17.11 Unilateral primary osteoarthritis, right knee; G89.29 Other chronic pain; M10.9 Gout, unspecified; Z87.891 Personal history of nicotine dependence; F32.A Depression, unspecified; M48.02 Spinal stenosis, cervical region; M48.061 Spinal stenosis, lumbar region without neurogenic claudication; G62.9 Polyneuropathy, unspecified; K59.00 Constipation, unspecified; R39.9 Unspecified symptoms and signs involving the genitourinary system; N40.1 Benign prostatic hyperplasia with lower urinary tract symptoms; F02.80 Dementia in other diseases classified elsewhere, unspecified severity, without behavioral disturbance, psychotic disturbance, mood disturbance, and anxiety
CPT/HCPCS: 36410; 36415; 80048; 80053; 82805; 84145; 87040; 87081; 87449; 87493; 87635; 92610; 96365; 96366; 96367; 96368; 96375; 97032; 97110; 97116; 97162; 97530; 99223; 99285; J1650; 70450; 71046; 72141; 74177; 81003; 82607; 83735; 84443; 85025; 85610; 85730; 86140; 87086; 87581; 87899; 99222; 99232; 99239; J0456; J2060; J2405; J2543; J3420; J3490; Q9967